=== PATIENT | male | born 1935 | race Caucasian/White ===

== ENCOUNTER → 2020-07-12 | Outpatient (CLI) | payer MEDICARE, BC ==
--- NOTE | 2020-07-12 09:10 | US ---
EXAMINATION TYPE: US kidneys/renal and bladder/ aorta DATE OF EXAM: 07/12/2020 COMPARISON: NONE CLINICAL HISTORY: N18.3 Chronic kidney disease stage 3. EXAM MEASUREMENTS: Right Kidney: 9.4 x 4.8 x 4.7 cm Left Kidney: 9.9 x 5.7 x 5.2 cm Post Void Residual Volume: 19.3 mL US Aorta (as indicated by Procedure Code from ordering physician): Mild ectasia is noted throughout a bdominal aorta, however, size is wnl. Irregular intimal wall thickening is noted throughout aorta. Right Kidney: No hydronephrosis or masses seen Left Kidney: No hydronephrosis or masses seen Bladder: not prepped; partially distended Bilateral Jets seen: yes Normal Post Void Residual: yes, as volume is less than 50.0ml. There is no evidence for hydronephrosis at this point in time. No nephrolithiasis is seen. No corie s are identified. The urinary bladder is anechoic. Bilateral ureteral jets are seen. IMPRESSION: No distinct abnormality seen. Plaque abdominal aorta.
== END | disposition home or self-care (01) ==
LOC: RADUSWWP 08:04
PROVIDERS: ATTEND Physician Assistant Medical
DX: I70.0 Atherosclerosis of aorta (principal); N18.3 Chronic kidney disease, stage 3 (moderate)
CPT/HCPCS: 76770

== ENCOUNTER → 2021-02-05 | Outpatient (CLI) | payer MEDICARE, OTHER | END | disposition home or self-care (01) | LOC: LABPAT 13:09 | PROVIDERS: ATTEND Orthopaedic Surgery | DX: Z01.812 Encounter for preprocedural laboratory examination (principal); M16.11 Unilateral primary osteoarthritis, right hip | CPT/HCPCS: 86850; 86900; 86901; 87070 ==

== ENCOUNTER → 2021-02-05 | Outpatient (CLI) | payer MEDICARE, OTHER | END | disposition home or self-care (01) | LOC: LABWHC1 13:50 | PROVIDERS: ATTEND Family Medicine | DX: E87.5 Hyperkalemia (principal) | CPT/HCPCS: 36415; 84132 ==

== ENCOUNTER 2021-02-12 08:40 | Day surgery (SDC) | payer BC, MEDICARE, OTHER ==
[2021-02-05 15:42] VITALS: BMI 26.6
--- NOTE | 2021-02-11 09:55 | HP ---
HISTORY AND PHYSICAL CHIEF COMPLAINT: Right hip pain. HISTORY OF PRESENT ILLNESS: The patient is an 85-year-old retired gentleman who presents with progressive right hip pain for the past 2 years. It has progressed recently. He notes anterior groin and thigh pain, worse with weightbearing activities. He has tried therapy in addition injection and medications with only partial temporary relief. He notes the pain severely limits his function and activities. PAST MEDICAL HISTORY: Significant for hypertension and arthritis. PAST SURGICAL HISTORY: Negative. CURRENT MEDICATIONS: Current medications include losartan. ALLERGIES: He denies drug allergies. FAMILY HISTORY: Negative. SOCIAL HISTORY: Significant for previous tobacco use. REVIEW OF SYSTEMS: Sixteen-point review of systems otherwise reviewed and is noncontributory. PHYSICAL EXAMINATION: On examination, the patient is approximately 5 feet 10 inches, 177 pounds of mesomorphic habitus. HEENT exam is nonfocal. Neck is supple. On examination of the right hip, he is tender about the anterior aspect. Passive range of motion flexion 85 degrees, external rotation with the hip flexed 60 degrees, internal rotation -10 degrees with pain. He does have approximately 1 cm shortening of the right lower extremity compared to the left. His distal neurovascular exam appears intact in the right lower extremity. Previous x-rays of the right hip obtained in the office to include AP and lateral views show severe osteoarthrosis with [id number] changes. IMPRESSION: Right hip severe osteoarthrosis-symptomatic. RECOMMENDATIONS: I talked to the patient at length regarding his condition and treatment options. At this point, he is quite symptomatic and limited because of pain despite previous conservative measures. After thorough discussion, he opts to proceed with surgery. We will plan to proceed with right total hip arthroplasty utilizing an anterior approach. Risks and benefits were discussed at length in layman's terms. We will institute DVT prophylaxis postoperatively. MMODL / IJN: [id number] /
[~2021-02-12 08:40] MED LIST: ACETAMINOPHEN TAB 500 MG TAB PO PRN; HYDROmorphone 0.5 MG/0.5 ML SYRINGE IVP PRN; LIDOCAINE 1% (10MG/ML) FOR IV START INTRADERMA PRN; MELOXICAM 7.5 MG TAB PO PRN; MIDAZOLAM 2 MG/2 ML VIAL IV PRN; TRANEXAMIC ACID 1,000 MG in SODIUM CHLORIDE 0.9% 100 ML IVPB PRN
[2021-02-12] MEDS ORDERED: ONDANSETRON 4 MG/2 ML VIAL ONE (09:17)
[2021-02-12] MEDS: LACTATED RINGERS 1,000 ML IV SCH ×2 (09:19→21:01)
[2021-02-12] MEDS ORDERED: DEXAMETHASONE SOD PHOSPHATE 4 MG/ML 1 ML VIAL IVP ONE (09:27)
[2021-02-12] MEDS ORDERED: ONDANSETRON 4 MG/2 ML VIAL IVP ONE (09:27)
[2021-02-12] MEDS ORDERED: MIDAZOLAM 2 MG/2 ML VIAL ONE (10:17)
[2021-02-12] MEDS ORDERED: fentaNYL (PF) 50 MCG/ML 2 ML AMP ONE (10:17)
[2021-02-12] MEDS ORDERED: TRANEXAMIC ACID 1,000 MG/10 ML VIAL ONE (10:17)
[2021-02-12] MEDS ORDERED: SODIUM CHLORIDE 0.9% 100 ML BAG ONE (10:17)
[2021-02-12] MEDS ORDERED: PROPOFOL 10 MG/ML 20 ML VIAL IV ONE (10:17)
[2021-02-12] MEDS ORDERED: ceFAZolin 3,000 MG in SODIUM CHLORIDE 0.9% IRRIGATIO 3,000 ML IRRIGATION ONE (10:58)
[2021-02-12] MEDS ORDERED: LACTATED RINGERS 1,000 ML IV ONE ×2 (12:05→14:45)
[2021-02-12] MEDS ORDERED: NALOXONE 0.4 MG/ML 1 ML VIAL IV PRN (12:30)
[2021-02-12] MEDS ORDERED: HYDROcodone/APAP 5-325MG 1 EACH TAB PO PRN (12:30)
--- NOTE | 2021-02-12 12:32 | P.OP ---
Date of Procedure: 02/12/21 Preoperative Diagnosis: Right hip severe osteoarthrosis Postoperative Diagnosis: Same Procedure(s) Performed: Right total hip arthroplastypress-fitanterior approach Implants: Depuy Corail size 11 collared press-fit femoral stem with 125 neck, 36+1.5 cobalt chrome femoral head, 52 mm [place] acetabular shell with neutral polyethylene liner. Anesthesia: spinal Surgeon: Darrian Rose Co Founder And Ceo #1: Natan Glass Estimated Blood Loss (ml): 75 Pathology: other (Femoral head) Condition: stable Disposition: PACU Indications for Procedure: The patient's an 85-year-old male presents with progressive right hip pain secondary osteoarthrosis despite conservative treatment. After thorough discussion the risks and benefits of operative intervention versus continued conservative measures he opted to proceed with surgery. Informed consent was obtained. Specific risks of surgery to include infection, neurovascular injury, development of blood clots, possible component loosening, possible leg length discrepancy, possible instability and need for subsequent procedures was discussed. Informed consent was obtained. Operative Findings: As below Description of Procedure: The patient was brought to the operating room, and after induction of spinal anesthesia was placed supine on the S[place] table. Positioning was checked with fluoroscopy. The right hip was then prepped and draped in a normal fashion. A 12 cm incision was then made starting 2 fingerbreadths distal and 3 finger breaths posterior to the ASIS in line with the proximal femur. The skin was incised sharply. Subcutaneous tissues were divided sharply. Electrocautery was used for hemostasis. The fascia was split in line with skin incision. The interval between the sartorius and tensor fascia michelle was then bluntly developed. The posterior fascia was opened with electrocautery. The lateral circumflex vessels were identified and cauterized prior to sectioning. A retractor was placed along the superior femoral neck as well as the anterior acetabular rim. A wide capsulotomy was performed. The neck cut was then made at a 45 angle to the shaft approximately 1 1/2 cm above the level of the lesser trochanter. The head was extracted. Attention was then paid towards preparing the acetabular. Anterior and posterior retractors were placed. The remaining capsular labral tissue sharply debrided clearly defining the acetabular margins. I began reaming with a 47 mm reamer taking care to initially medialize then reaming at 45 of abduction and 20 of anteversion. Sequential reaming is performed up to 51 mm. A trial 52 mm acetabular shell was inserted in the same orientation and was fully seated. There was good rim fit and stability. Positioning was checked with fluoroscopy. The final 52 mm acetabular shell was inserted again at 45 of abduction and 20 of anteversion. This was fully seated. There was good rim fit and stability. Again fluoroscopy was used to check the adequacy of placement. A neutral polyethylene liner was gently impacted. Care was taken to avoid any soft tissue interposition. Pulsatile lavage was utilized. Attention was then paid towards preparing the proximal femur. The central region was cleared of soft tissue. A canal finder was used to find the femoral canal. Sequential broaching was performed up to size 11 taking care to lateralize proximally. A calcar mill was used to fashion the medial calcar. There was good rotational stability. A 125 neck along with a 36+1.5 mm head was placed. The hip was gently reduced. Fluoroscopy was used to check the adequacy of positioning along with leg lengths. I felt both were good. The hip was gently dislocated. The trial components were removed. The final size 11 collared 125 press-fit femoral stem was inserted parallel to the posterior cortex. This was fully seated and there was good rotational stability. A 36 mm +1.5 head was placed. This was gently impacted. The hip was then gently reduced. Final fluoroscopic view showed adequate placement implant along with taoism of leg length. Stability was checked with 80 of external rotation and 60 of extension of the right hip. The wound was irrigated with sterile lavage. The fascia was closed with running 0 Vicryl suture. There was minimal drainage therefore a deep drain was not placed. The second dose of IV TXA was given. The subcutaneous tissues were reapproximated interrupted 2-0 Vicryl sutures. The skin was reapproximated with 3-0 subcuticular strata fix suture. Skin tape and adhesive was applied. A sterile dressing was applied. The patient was then awoken from sedation and transferred to recovery room in good condition. Blood loss was estimated at 75 mL. No complications were incurred. Sponge and needle counts were correct at the end of the case. Natan PARRA assisted during the major components is case to include exposure, bone resection, implantation, and closure.
--- NOTE | 2021-02-12 12:34 | FL ---
EXAMINATION TYPE: FL guidance operating room DATE OF EXAM: 02/12/2021 HISTORY: Fluoroscopy time 49 seconds of fluoroscopy provided. IMPRESSION: 1. Fluoroscopy time.
--- NOTE | 2021-02-12 13:14 | XR ---
EXAMINATION TYPE: XR Hip Limited RT DATE OF EXAM: 02/12/2021 COMPARISON: NONE HISTORY: Postop TECHNIQUE: One view submitted. FINDINGS: There is postsurgical change in near anatomic alignment. There is soft tissue edema and emphysema. IMPRESSION: 1. Postoperative change. Appears in near-anatomic alignment.
[2021-02-12] MEDS ORDERED: FAMOTIDINE 20 MG/2 ML VIAL IV SCH (14:00)
[2021-02-12] MEDS ORDERED: HYDROmorphone 0.5 MG/0.5 ML SYRINGE IVP PRN (14:52)
[2021-02-12] MEDS ORDERED: SENNOSIDES-DOCUSATE SODIUM 1 EACH TAB PO SCH (21:00)
[2021-02-13 04:55] VITALS: BP 130/76; PULSE 81; RESP 16; TEMP 97.9
[2021-02-13 07:12] LABS: Basophils % (A) 0 %; Eosinophils % (A) 0 %; HCT 32.6 % (39.0-53.0); HGB 11.2 gm/dL (13.0-17.5); Lymphocytes # (A) 1.9 k/uL (1.0-4.8); Lymphocytes % (A) 17 %; MCH 29.5 pg (25.0-35.0); MCHC 34.4 g/dL (31.0-37.0); MCV 85.8 fL (80.0-100.0); Mean Platelet Volume 6.6; Monocytes # (A) 0.8 k/uL (0-1.0); Monocytes % (A) 7 %; Neutrophils # (A) 8.4 k/uL (1.3-7.7); Neutrophils % (A) 74 %; Platelet Count 181 k/uL (150-450); RDW 12.8 % (11.5-15.5); WBC 11.3 k/uL (3.8-10.6)
[2021-02-13] MEDS ORDERED: ACETAMINOPHEN TAB 325 MG TAB PO STA (08:21)
--- NOTE | 2021-02-13 08:48 | P.PN ---
Subjective Progress Note Date: 02/13/21 Principal diagnosis: s/p direct anterior total hip arthroplasty Patient evaluated at bedside today, he is resting comfortably. He's done very well with physical therapy ambulating with stairs. He's tolerating regular diet. He is urinating with no difficulty. He denies any headaches, lightheadedness, chest pain or shortness of breath. Objective - Vital Signs Vital signs: Vital Signs Temp 97.9 F 02/13/21 04:53 Pulse 81 02/13/21 04:53 Resp 16 02/13/21 04:53 BP 130/76 02/13/21 04:53 Pulse Ox 92 L 02/13/21 04:53 Intake & Output 02/12/21 02/13/21 02/13/21 18:59 06:59 18:59 Intake Total 1851 200 Output Total 75 Balance 1776 200 Weight 76.6 kg Intake: IV 1751 Intake, IV Titration 100 200 Amount Lactated Ringers 1,000 ml 100 @ 0 mls/hr IV .[facility] Rx#:[id number] Lactated Ringers 1,000 ml 200 @ 20 mls/hr IV .Q24H [facility] Rx#:[id number] Output: Estimated Blood Loss 75 Other: Voiding Method Toilet # Voids 1 - Exam Right lower extremity: Incision is clean, dry, and intact. The exofin fusion tape is in good condition. There is minimal soft tissue swelling and ecchymosis surrounding the medial and lateral aspects of the incision. Calf is soft, no tenderness with palpation. Plantar flexion, dorsiflexion, EHL, FHL are intact. Sensory exam to light touch throughout the extremity is intact, dorsal pedis pulses 2+. - Labs CBC & Chem 7: 02/13/21 06:27 02/12/21 09:15 Labs: Abnormal Lab Results - Last 24 Hours (Table) 02/13/21 Range/Units 06:27 WBC 11.3 H (3.8-10.6) k/uL RBC 3.80 L (4.30-5.90) m/uL Hgb 11.2 L (13.0-17.5) gm/dL Hct 32.6 L (39.0-53.0) % Neutrophils # 8.4 H (1.3-7.7) k/uL Assessment and Plan Assessment: Status post direct anterior right total hip arthroplasty Plan: Pain control, for discharge home on oral medication DVT prophylaxis, aspirin 81 mg twice a day Wound care instructions discussed Home physical therapy and nursing after discharge Medical recommendations Discharge planning: Patient will be discharged home today Time with Patient: Less than 30
--- NOTE | 2021-02-13 08:54 | P.DS ---
Providers Date of admission: 02/12/2021 Expected date of discharge: 02/13/21 Attending physician: Darrian Rose Consults: 02/12/21 15:07 Consult Physician Routine Consulting Provider: Matt Hough Consult Reason/Comments: Medical Management Do you want consulting provider notified?: Yes [facility] Course: Date of admission: 02/12/2021 Date of discharge: 02/13/2021 Admission diagnosis: Status post direct anterior right total hip arthroplasty Discharge diagnosis: Same Attending physician: Dr. Rose Surgical procedures: Direct anterior right total hip arthroplasty Brief history: Patient is a a 85-year-old male with a history of progressive primary right hip osteoarthritis. At this point patient has failed conservative treatment measures and has opted to proceed with a elective direct anterior right total hip arthroplasty Hospital course: Details of patient's surgery can be found in operative report. Patient tolerated the procedure well and was subsequently transported to orthopedic floor. Patient's orthopeidc and medical care was provided daily. Patient had daily laboratory tests performed for evaluation of overall blood counts. Patient had daily physical therapy to include strengthening range of motion as well as education with walker ambulation. Patient was treated with Xarelto for their postoperative DVT prophylaxis during their inpatient stay. Patient was noted to have a relatively uneventful postoperative course. Patient reported satisfactory pain control with oral pain medications by postoperative day 0. Patient showed satisfactory progress with physical therapy. Patient moved steadily through the program and had no difficulty meeting the goals by postoperative day 1. Given patient's otherwise satisfactory course and having met physical therapy goals, plan is to discharge patient home on postoperative day 1. Discharge condition/disposition: Patient will be discharged home in stable condition. Discharge medications: Instructions are given on resumption of patient's normal daily medications per primary care recommendation, in addition patient will be prescribed Appling 5 mg/325 mg, Colace 100 mg, aspirin 81 mg. Discharge instructions: 1. Wound care and infection precautions, keep incision dry and covered while showering, no lotions, creams, moisturizers. No soaking, tubs, pools, hottubs. Do not scrub over the incision. 2. Weight-bear as tolerated with walker / cane until follow-up. 3. Ice and elevate when necessary. Do not exceed 20 minutes per hour with ice pack. 4. Utilize compression sleeve until seen at first follow up appointment. 5. Visiting nursing care. 6. Home physical therapy 7. Pain meds and anticoagulants per prescription. 8. Pain medication has potential to cause constipation. Increase oral fluid and fiber intake. Contact primary care provider if you have not had a bowel movement within 48 hours after discharge 9. No anti-inflammatory medication until discussed at first post operative visit, this including Motrin, Aleve, Mobic, Diclofenac 10. Follow up in office at 2 weeks postop with Saul Carranza PA-C/Natan Xavier 11. Follow up with your primary care doctor 7-10 days after discharge. 12. Contact [facility] with any questions, . Procedures: Direct anterior right total hip arthroplasty Patient Condition at Discharge: Good Plan - Discharge Summary Discharge Rx Participant: No New Discharge Prescriptions: New Docusate [Colace] 100 mg PO DAILY #30 capsule Aspirin [Adult Low Dose Aspirin EC] 81 mg PO BID #60 tablet. HYDROcodone/APAP 5-325MG [Appling 5-325] 1 tab PO Q6HR PRN #21 tab PRN Reason: Pain No Action Losartan [Cozaar] 25 mg PO QAM Esomeprazole Magnesium [NexIUM] 40 mg PO QAM Atorvastatin [Lipitor] 20 mg PO DAILY Discharge Medication List Atorvastatin [Lipitor] 20 mg PO DAILY 02/06/21 [History] Esomeprazole Magnesium [NexIUM] 40 mg PO QAM 02/06/21 [History] Losartan [Cozaar] 25 mg PO QAM 02/06/21 [History] Aspirin [Adult Low Dose Aspirin EC] 81 mg PO BID #60 tablet. 02/13/21 [Rx] Docusate [Colace] 100 mg PO DAILY #30 capsule 02/13/21 [Rx] HYDROcodone/APAP 5-325MG [Appling 5-325] 1 tab PO Q6HR PRN #21 tab 02/13/21 [Rx] Follow up Appointment(s)/Referral(s): Todd Carranza PAC [PHYSICIAN [employer] [facility]] - 2 Weeks Activity/Diet/Wound Care/Special Instructions: Orthopedic Discharge Instructions: 1. Wound care and infection precautions, keep incision dry and covered while showering, no lotions, creams, moisturizers. No soaking, pools, hot tubs. Do not scrub over incision. 2. Weight-bear as tolerated with walker / cane until follow-up. 3. Ice and elevate when necessary. Do not exceed 20 minutes per hour with ice pack. 4. Utilize compression sleeve until seen at first follow up appointment. 5. Pain meds and anticoagulants per prescription. 6. Pain medication has potential to cause constipation. Increase oral fluid and fiber intake. Contact primary care provider if you have not had a bowel movement within 48 hours after discharge. 7. No anti-inflammatory medication until discussed at first post operative visit, this including Motrin, Aleve, Mobic, Diclofenac. 8. Follow up in office at 2 weeks postop with Saul Carranza PA-C/Natan Glass PA-C 9. Follow up with your primary care doctor 7-10 days after discharge. 10. Contact [facility] with any questions, . Discharge Disposition: HOME WITH HOME HEALTH SERVICES
[2021-02-13] MEDS ORDERED: RIVAROXABAN 10 MG TAB PO SCH (09:00)
[2021-02-13] MEDS ORDERED: PANTOPRAZOLE 40 MG TABLET PO SCH (10:15)
[2021-02-13] MEDS ORDERED: LOSARTAN 25 MG TAB PO SCH (10:15)
[2021-02-13] MEDS ORDERED: ATORVASTATIN 20 MG TAB PO SCH (10:15)
== END 2021-02-13 12:45 | disposition home health service (06) ==
LOC: OR 08:40 → 5NMEDONC 12:57 → OR 02-13 12:45
PROVIDERS: ATTEND Orthopaedic Surgery
DX: M16.11 Unilateral primary osteoarthritis, right hip (principal); Z79.899 Other long term (current) drug therapy; I10 Essential (primary) hypertension; Z87.891 Personal history of nicotine dependence; K21.9 Gastro-esophageal reflux disease without esophagitis; Z97.2 Presence of dental prosthetic device (complete) (partial)
CPT/HCPCS: 97161; 97535; 97165; 84132; 85025; 88300; 87635; 73501; 27130; C1776; J1100; J0690 ×3; J2405; J1170; 86850; 86900; 86901

== ENCOUNTER → 2022-10-22 | Outpatient (CLI) | payer MEDICARE ==
--- NOTE | 2022-10-22 14:45 | XR ---
EXAMINATION TYPE: XR chest 2V DATE OF EXAM: 10/22/2022 COMPARISON: NONE TECHNIQUE: PA and lateral views submitted. HISTORY: Pain FINDINGS: The lungs are clear and there is no pneumothorax, pleural effusion, or focal pneumonia. There is sc lerotic change of aorta. No overt failure. AC joint arthropathy bilaterally. Mild hyperinflation. IMPRESSION: 1. No acute process.
--- NOTE | 2022-10-22 14:47 | XR ---
EXAMINATION TYPE: XR Hip Complete LT DATE OF EXAM: 10/22/2022 COMPARISON: NONE HISTORY: Pain TECHNIQUE: 2 views submitted FINDINGS: There is no evidence of erosive change or acute fracture. Postsurgical changes of right hip are incid entally noted. There is mild concentric narrowing of the hip joint with hypertrophic changes in the a cetabulum. Vascular calcifications seen. IMPRESSION: 1. Mild left hip arthropathy concentric narrowing of the joint space. Hypertrophic change of the acet abulum can be associated with femoral acetabular impingement..
--- NOTE | 2022-10-22 14:48 | XR ---
EXAM TYPE: LUMBAR SPINE X RAY SERIES COMPARISON: NONE HISTORY: Pain TECHNIQUE: 4 views are submitted. FINDINGS: Alignment is anatomic. The pedicles are intact. The transverse processes are intact. There is vacu um disc and severe degenerative disc disease at levels L2-S1 with hypertrophic spurring and facet art hropathy. Vascular calcifications are noted. Diffuse osteopenia. Curvature of the spine. IMPRESSION: 1. Multilevel severe degenerative disc disease and facet arthropathy. Comment follow-up MRI.
== END | disposition home or self-care (01) ==
LOC: RADXRYALE 14:14
PROVIDERS: ATTEND Physician Assistant
DX: M16.12 Unilateral primary osteoarthritis, left hip (principal); R53.82 Chronic fatigue, unspecified; R06.02 Shortness of breath; M47.816 Spondylosis without myelopathy or radiculopathy, lumbar region; M51.36 Other intervertebral disc degeneration, lumbar region
CPT/HCPCS: 71046; 72110; 73502

== ENCOUNTER → 2023-02-16 | Outpatient (CLI) | payer MEDICARE ==
[2023-02-16 13:14] VITALS: BP 166/85; PULSE 73; RESP 18; TEMP 97.8
--- NOTE | 2023-02-16 14:35 | P.PAINPG ---
PQRS Measure Charge Sheet Comment: HISTORY OF PRESENT ILLNESS: 87 yr old male w daughter at side as a referral from [facility] presents today w severe and chronic LBP secondary to DDD, spondylosis and facet arthropathy without myelopathy for evaluation. Pt states pain level is provoked at 9/10 in intensity, constant, localized in the R lower lumbar spine, burning in character w shooting pain towards the RLE. Pain is provoked by walking. Pain is alleviated by PT semi weekly x 4 wks in Dec 2022 which provoked pain, massage therapy semi weekly since Dec 2022, heat, meds, THC topicals, repositioning and rest. PMH: HTN, OA, CRF PSH: R Hip Arthroplasty (2020), BL Cataract Resection, R eye surgery SH: Former tobacco user (quit 40 yrs ago), No ETOH abuse, No illicit drug use FH: Mo- No Reported History All: NKDA Meds: See list REVIEW OF ORGAN SYSTEMS: CONSTITUTIONAL: No fevers or chills. No recent weight lo ss. NEUROLOGICAL: + numbness and tingling along the distal extremities. No seizure disorders or headaches. MUSCULOSKELETAL: + pain PSYCHIATRIC: Denies current depression or suicidal thoughts. Physical Examinations : Constitutional : Cooperative , not in acute distress . Neurologic : Cranial nerve II to XII intact. No focal neurological deficits. Psychiatric : alert & oriented x 3. Matching mood & appropriate affect. Judgment & insight intact. Musculoskeletal : Cervical Spine Motor strength in the deltoid and biceps: Normal right side. Normal Left side Motor strength biceps and the wrist e xtensors: Normal right side . Normal left side Motor strength in the triceps muscle: Normal right side. Normal left side Deep tendon reflexes: Normal at the biceps. Normal at Brachioradialis. Normal at triceps Vertebral body tenderness to deep palpation over Cervical facet loading test: positive bilaterally Spurling test: positive bilaterally Neck distraction test: positive bilaterally Naz sign: positive bilaterally Lumbar spine Motor strength lower extremities ,thigh and legs 5/5 Right side , 5/5 Left side Deep tendon reflexes : Normal Knee Jerk. Normal Ankle Jerk Vertebral body tenderness over R L3, L4, L5 Lumbar facet Loading Test: positive Right / positive Left Range of motion of the lumbar spine Flexion 30 degrees, extension 10 degrees Straight Leg Raise test: Left/ Right positive at degree Rossi test: positive right / positive left. Severe tenderness over the Sacroiliac joint on the Right / Left sides Katharine test: positive bilaterally Seated flexion test: positive bilaterally. Sacral spine : Severe tenderness over the Sacroiliac joint: right side / left side Range of motion: Flexion of the lumbar spine <60 degrees Range of motion: Extension of the lumbar spine <20 degrees Gaenslen's Test positive Kaz's Test positive Rossi test: positive right side / left side Thigh Thrust Test Sacral Thrust Test Imaging: Lumbar x ray 10/21/22 reviewed Assessment/ Plan : Lumbar DDD Recommendation of MRI of the lumbar spine re: M51.36. May follow up within 2-4 wks All questions answered. I have spent greater than 30 minutes on patient care today. Dr Mckeon was available by phone for the evaluation of this patient. The time was used to review the medical records including relevant urine studies and Prescription history (MAPs), review of the available imaging, evaluation and examination of the patient, coordination of care with the medical staff and if applicable referring physicians, as well as creation of the medical record Home Medications: Ambulatory Orders Atorvastatin [Lipitor] 20 mg PO DAILY 02/06/21 Esomeprazole Magnesium [NexIUM] 40 mg PO QAM 02/06/21 Losartan [Cozaar] 25 mg PO QAM 02/06/21 Aspirin [Adult Low Dose Aspirin EC] 81 mg PO BID #60 tablet. 02/13/21 Docusate [Colace] 100 mg PO DAILY #30 capsule 02/13/21 Baclofen 10 mg PO 02/16/23 Controlled Substance Measures - Controlled Substance Measures Is patient prescribed a controlled substance at discharge?: No
== END ==
LOC: PNWHC3 12:17
PROVIDERS: ATTEND Specialist
DX: M47.26 Other spondylosis with radiculopathy, lumbar region (principal); I10 Essential (primary) hypertension; Z79.82 Long term (current) use of aspirin; M19.90 Unspecified osteoarthritis, unspecified site; Z87.891 Personal history of nicotine dependence; N18.9 Chronic kidney disease, unspecified; M48.062 Spinal stenosis, lumbar region with neurogenic claudication; M51.16 Intervertebral disc disorders with radiculopathy, lumbar region; M41.06 Infantile idiopathic scoliosis, lumbar region
CPT/HCPCS: 99211

== ENCOUNTER → 2023-03-13 | Outpatient (CLI) | payer MEDICARE ==
--- NOTE | 2023-03-16 16:52 | MR ---
EXAMINATION TYPE: MR lumbar spine wo con DATE OF EXAM: 03/13/2023 COMPARISON: Outside lumbar spine x-ray November 10, 2022. HISTORY: Low back pain that radiates down right leg. Intervertebral disc degeneration per order. TECHNIQUE: Multiplanar, multisequence imaging of the lumbar spine is performed without IV contrast. FINDINGS: There is dextroconvex scoliosis centered at the lumbosacral junction. Slight grade 1 retrol isthesis L3 on L4 and L4 on L5. Sagittal images of the lumbar spine show vertebral body heights to ap pear satisfactory. There is multilevel disc desiccation along with mild to moderate multilevel disc s pace narrowing with relative sparing of L1-L2 level and multilevel vacuum disc phenomenon. The conus medullaris is normal in position and signal ending superior L1 level. The bone marrow signal intensi ty is within normal limits. Mild/moderate multilevel anterior spurring is redemonstrated. Axial images show T12-L1 and L1-L2 levels to appear within normal limits. Axial images at L2-L3 level show mild to moderate broad-based disc bulging and jzmt-ge-[id number] facet arthropathy with mild effacement of the anterior thecal sac and mild left-sided anterior inferior ne ural foraminal narrowing due to left foraminal disc protrusion component. Axial images at L3-L4 level show moderate broad disc bulge mildly effacing anterior thecal sac along with mild facet arthropathy mildly effacing the anterior thecal sac. There is mild to moderate bilate ral neural foraminal narrowing. Axial images at L4-L5 level show moderate broad disc bulge with right lateral disc protrusion compone nt along with mild/moderate facet arthropathy. There is moderate left along with severe right-sided n eural foraminal narrowing. Encroachment on right L4 nerve is present. Axial images at L5-S1 level show mild broad disc bulge and mild facet arthropathy. There is severe le ft-sided neural foraminal narrowing encroaching on the exiting left L5 nerve and mild right-sided joshua ral foraminal narrowing. Paraspinal muscle bulk is maintained. IMPRESSION: Scoliosis with multilevel spondylolisthesis and degenerative change in the lower lumbar s pine as detailed above. Attention to L4-L5 level where eccentric disc herniation encroaches on the ri ght L4 nerve likely accounting for patient's radiculopathy type symptoms.
== END | disposition home or self-care (01) ==
LOC: RADMRIMAIN 14:58
PROVIDERS: ATTEND Physician Assistant Medical
DX: M51.36 Other intervertebral disc degeneration, lumbar region (principal); M43.16 Spondylolisthesis, lumbar region; M41.86 Other forms of scoliosis, lumbar region; M51.26 Other intervertebral disc displacement, lumbar region; M47.817 Spondylosis without myelopathy or radiculopathy, lumbosacral region
CPT/HCPCS: 72148

== ENCOUNTER → 2023-03-19 | Outpatient (CLI) | payer MEDICARE ==
[2023-03-19 15:25] VITALS: BP 156/83; PULSE 82; RESP 18; TEMP 98.1
--- NOTE | 2023-03-23 07:40 | P.PAINPG ---
PQRS Measure Charge Sheet Comment: 87 yr old male w daughter at side presents today w severe and chronic LBP x 1 yr secondary to DDD, spondylosis and facet arthropathy without myelopathy for MRI lumbar spine results. Pt states pain level is provoked at 8/10 in intensity, constant, localized in the R lower lumbar spine, burning in character w shooting pain towards the RLE. Pain is provoked by walking. Pain is alleviated by PT semi weekly x 6 wks in Jan 2023 which provoked pain, massage therapy semi weekly x 3 wks until Dec 2022 which stopped due to out of pocket costs, heat, meds (Zanaflex, ASA), THC topicals, repositioning, sitting and rest. REVIEW OF ORGAN SYSTEMS: CONSTITUTIONAL: No fevers or chills. No recent weight loss. NEUROLOGICAL: + numbness and tingling along the distal extremities. No seizure disorders or headaches. MUSCULOSKELETAL: + pain PSYCHIATRIC: Denies current depression or suicidal thoughts. Physical Examinations : Constitutional : Cooperative , not in acute distress . Neurologic : Cranial nerve II to XII intact. No focal neurological deficits. Psychiatric : alert & oriented x 3. Matching mood & appropriate affect. Judgment & insight intact. Musculoskeletal : Cervical Spine Motor strength in the deltoid and biceps: Normal right side. Normal Left side Motor strength biceps and the wrist extensors: Normal right side . Normal left side Motor strength in the triceps muscle: Normal right side. Normal left side Deep tendon reflexes: Normal at the biceps. Normal at Brachioradialis. Normal at triceps Vertebral body tenderness to deep palpation over Cervical facet loading test: positive bilaterally Spurling test: positive bilaterally Neck distraction test: positive bilaterally Naz sign: positive bilaterally Lumbar spine Motor strength lower extremities ,thigh and legs 5/5 Right side , 5/5 Left side Deep tendon reflexes : Normal Knee Jerk. Normal Ankle Jerk Vertebral body tenderness over L4 Lumbar facet Loading Test: positive Right / positive Left Range of motion of the lumbar spine Flexion 30 degrees, extension 10 degrees Straight Leg Raise test: Left/ Right positive at <45 degrees Rossi test: positive right / positive left. Severe tenderness over the Sacroiliac joint on the Right / Left sides Gaenslen test: positive bilaterally Seated flexion test: positive bilaterally. Sacral spine : Severe tenderness over the Sacroiliac joint: right side / left side Range of motion: Flexion of the lumbar spine <60 degrees Range of motion: Extension of the lumbar spine <20 degrees Gaenslen's Test positive Kaz's Test positive Rossi test: positive right side / left side Thigh Thrust Test Sacral Thrust Test Imaging: Lumbar MRI non contrast from 03/13/23 reviewed Assessment/ Plan : Lumbar DDD Recommendation of NEELAM R paramedian L4-L5. May need a series of injections for optimal pain releif. Risks, benefits of procedure discussed and pt verbalized un derstanding. Protocol for discontinuation/ continuation of medications tiki procedure discussed. All questions answered. I have spent greater than 30 minutes on patient care today. Dr Mckeon was soha ilable by phone for the evaluation of this patient. The time was used to review the medical records including relevant urine studies and Prescription history (MAPs), review of the available imaging, evaluation and examination of the patient, coordination of care with the medical staff and if applicable referring physicians, as well as creation of the medical record PQRS Narrative: Hx Alcohol Use (MH) No Home Medications: Ambulatory Orders Atorvastatin [Lipitor] 20 mg PO DAILY 02/06/21 Esomeprazole Magnesium [NexIUM] 40 mg PO QAM 02/06/21 Losartan [Cozaar] 25 mg PO QAM 02/06/21 Aspirin [Adult Low Dose Aspirin EC] 81 mg PO BID #60 tablet. 02/13/21 Docusate [Colace] 100 mg PO DAILY #30 capsule 02/13/21 tiZANidine HCL [Zanaflex] 2 mg PO TID PRN 30 Days #90 cap 02/16/23 tiZANidine HCL [Zanaflex] 2 mg PO TID PRN 30 Days #90 cap 02/18/23 Controlled Substance Measures - Controlled Substance Measures Is patient prescribed a controlled substance at discharge?: No
== END ==
LOC: PNWHC3 14:24
PROVIDERS: ATTEND Specialist
DX: M51.36 Other intervertebral disc degeneration, lumbar region (principal); Z79.82 Long term (current) use of aspirin
CPT/HCPCS: 99211

== ENCOUNTER 2023-04-16 09:43 | Day surgery (SDC) | payer MEDICARE ==
[2023-04-15 11:17] VITALS: BMI 27.3
[~2023-04-16 09:43] MED LIST changes: -ACETAMINOPHEN TAB 500 MG TAB PO PRN; -HYDROmorphone 0.5 MG/0.5 ML SYRINGE IVP PRN; +LACTATED RINGERS 1,000 ML IV SCH; -LIDOCAINE 1% (10MG/ML) FOR IV START INTRADERMA PRN; -MELOXICAM 7.5 MG TAB PO PRN; -MIDAZOLAM 2 MG/2 ML VIAL IV PRN; -TRANEXAMIC ACID 1,000 MG in SODIUM CHLORIDE 0.9% 100 ML IVPB PRN
[2023-04-16 10:08] VITALS: TEMP 97.3
[2023-04-16] MEDS ORDERED: methylPREDNISolone ACETATE 40 MG/ML 1 ML VIAL ONE (10:13)
[2023-04-16] MEDS ORDERED: IOPAMIDOL M200 10 ML VIAL ONE (10:13)
--- NOTE | 2023-04-16 10:21 | P.PCN ---
Date of Procedure: 04/16/23 Procedure(s) Performed: PREOPERATIVE DIAGNOSIS: 1- Lumbar Degenerative Disc Diseases 2-Lumbar spondylosis with Facet arthropathy without myelopathy. 3-lumbar radiculopathy POSTOPERATIVE DIAGNOSIS: 1-lumbar degenerative disc disease. 2-lumbar spondylosis with facet arthropathy without myelopathy. 3-lumbar radiculopathy PROCEDURE 1. Lumbar epidural steroid injection under fluoroscopic guidance at the L4-5 level ( right paramedial ). (Fluoroscopy imaging was available in radiology department) 2. Lumbar epidurogram. ANESTHESIA: moderate sedation with intravenous Versed 2 mg ,and fentanyle 100 Mcg Sedation start time : Sedation end time : EBL: Minimal PROCEDURE INDICATION: The patient with low back pain and radiculitis symptoms unresponsive to conservative treatment. Fluoroscopy was used to optimize v isualization of the needle placement and to maximize safety. PROCEDURE DESCRIPTION / TECHNIQUE: The patient was seen and identified in the preoperative area. Risks, benefits, complications including but not limited to infections ,bleeding ,allergic reaction to the medications ,nerve damage and not complete pain releife , and alternatives were discussed with the patient. The patient agreed to proceed with the procedure and signed the consent. IV was started, and vital signs were stable. Patient was taken to the OR and time out was completed. The patient was placed in the prone position on procedure table and a pillow was placed under the abdomen to reduce lumbar lordosis. The lumbosacral area was prepped and draped in the usual sterile fashion.ere closely monitored during the procedure. Vital signs was monitered during the entire procedure. Using anterior-posterior fluoroscopy, the L4-5 ( right paramedial ) interlaminar space was identified and the skin over this site was marked and then infiltrated with 1% lidocaine subcutaneously. Subsequently, a 20-gauge Tuohy epidural needle was inserted and advanced toward the epidural space using the ``Loss of resistance technique and guided by AP and lateral fluoroscopy. The correct needle position in the epidural space was verified with the injection of 2 mL of the water soluble contrast dye Isovue 200 contrast and observing an excellent epidurogram with the epidural spread of the dye, after negative aspiration for blood and CSF and in the absence of paresthesias. Again after negative aspiration, a 6 ml mixture containing 40 mg of Depo-medrol ( Preservetive Free ), and 2 ml of preservative free Normal Saline, and 2 ml of preservative free lidocaine 1% solution was injected and a washout of epidurogram was seen. Needle was withdrawn intact, skin was cleansed, and bandages were applied. COMPLICATIONS: None DISPOSITION / PLANS: The patient was placed in a supine position and transferred to the recovery area in a stable condition for observation. There was no evidence of lower extremity motor or sensory deficit after the procedure. Patient was discharged from the recovery room after meeting discharge criteria. Home discharge instructions were given to the patient by the staff. The patient was reexamined prior to discharge. The patient will schedule a follow up in the clinic in 2-4 weeks.
--- NOTE | 2023-04-16 10:33 | FL ---
Intraoperative/procedural fluoroscopic services were provided for lumbar epidural injection. Total fl uoroscopy time is 2.5 seconds with a total of 1 submitted image to PACS. Total DAP [id number] ease see the operative note for further details.
[2023-04-16 10:51] VITALS: BP 171/80; PULSE 71; RESP 15
== END 2023-04-16 11:00 | disposition home or self-care (01) ==
LOC: ORPAIN 09:43
PROVIDERS: ATTEND Specialist
DX: M51.16 Intervertebral disc disorders with radiculopathy, lumbar region (principal); M47.26 Other spondylosis with radiculopathy, lumbar region; Z88.8 Allergy status to other drugs, medicaments and biological substances
CPT/HCPCS: 62323; J1030; Q9966

== ENCOUNTER → 2023-05-27 | Outpatient (CLI) | payer MEDICARE ==
[2023-05-27 11:33] VITALS: BP 167/97; PULSE 68; RESP 15; TEMP 98.3
--- NOTE | 2023-05-27 13:55 | P.PAINPG ---
PQRS Measure Charge Sheet Comment: 87 yr old male w daughter at side presents today w severe and chronic LBP x 1 yr secondary to DDD, spondylosis and facet arthropathy without myelopathy for evaluation s/p R paramedian NEELAM L4-L5 #1. Pt states she experienced 40 % pain relief x 10 wks s/p procedure. Pt states pain level is provoked at 8.5/10 in intensity, constant, localized in the R lower lumbar spine, burning in character w shooting pain towards the R hip and knee. Pain is provoked by walking. Pain is alleviated by PT semi weekly x 6 wks in Jan 2023 which provoked pain, massage therapy semi weekly x 3 wks until Dec 2022 which stopped due to out of pocket costs, heat, meds (Zanaflex, ASA), THC topicals, repositioning, sitting and rest. Oswestry axial pain score of 21. Interventional procedures include NEELAM L4-L5 x1 Medications include Zanaflex, ASA, THC topical Physical Examinations : Constitutional : Cooperative , not in acute distress . Neurologic : Cranial nerve II to XII intact. No focal neurological deficits. Psychiatric : alert & oriented x 3. Matching mood & appropriate affect. Judgment & insight intact. Musculoskeletal : Cervical Spine Motor strength in the deltoid and biceps: Normal right side. Normal Left side Motor strength biceps and the wrist extensors: Normal right side . Normal left side Motor strength in the triceps muscle: Normal right side. Normal left side Deep tendon reflexes: Normal at the biceps. Normal at Brachioradialis. Normal at triceps Vertebral body tenderness to deep palpation over Cervical facet loading test: positive bilaterally Spurling test: positive bilaterally Neck distraction test: positive bilaterally Naz sign: positive bilaterally Lumbar spine Motor strength lower extremities ,thigh and legs 5/5 Right side , 5/5 Left side Deep tendon reflexes : Normal Knee Jerk. Normal Ankle Jerk Vertebral body tenderness Lumbar facet Loading Test: positive Right / positive Left over R L4-L5, L5-S1 Range of motion of the lumbar spine Flexion 30 degrees, extension 10 degrees Straight Leg Raise test: Left/ Right positive at degrees Rossi test: positive right / positive left. Severe tenderness over the Sacroiliac joint on the Right / Left sides Gaenslen test: positive bilaterally Seated flexion test: positive bilaterally. Sacral spine : Severe tenderness over the Sacroiliac joint: right side / left side Range of motion: Flexion of the lumbar spine <60 degrees Range of motion: Extension of the lumbar spine <20 degrees Gaenslen's Test positive Kaz's Test positive Rossi test: positive right side / left side Thigh Thrust Test Sacral Thrust Test Imaging: Lumbar MRI non contrast from 03/13/23 reviewed Assessment/ Plan : Lumbar DDD Recommendation of R MBB L4-L5, L5-S1. May need a series of injections for optimal pain releif. Risks, benefits of procedure discussed and pt verbalized understanding. Protocol for discontinuation/ continuation of medications tiki procedure discussed. Advised pt and daughter at side to go to their PCP for a BP evaluation. Dangers of elevated BP discussed and pt/ daughter at side acknowledged understanding. All questions answered. I have spent greater than 30 minutes on patient care today. Dr Mckeon was available by phone for the evaluation of this patient. The time was used to review the medical records including relevant urine studies and Prescription history (MAPs), review of the available imaging, evaluation and examination of the patient, coordination of care with the medical staff and if applicable referring physicians, as well as creation of the medical record PQRS Narrative: Hx Alcohol Use (MH) No Home Medications: Ambulatory Orders Atorvastatin [Lipitor] 20 mg PO DAILY 02/06/21 Esomeprazole Magnesium [NexIUM] 40 mg PO QAM 02/06/21 Losartan [Cozaar] 25 mg PO QAM 02/06/21 Aspirin [Adult Low Dose Aspirin EC] 81 mg PO BID #60 tablet. 02/13/21 Docusate [Colace] 100 mg PO DAILY #30 capsule 02/13/21 Controlled Substance Measures - Controlled Substance Measures Is patient prescribed a controlled substance at discharge?: No
== END ==
LOC: PNWHC3 10:53
PROVIDERS: ATTEND Specialist
DX: M51.37 Other intervertebral disc degeneration, lumbosacral region (principal); M47.817 Spondylosis without myelopathy or radiculopathy, lumbosacral region; G89.29 Other chronic pain; Z88.8 Allergy status to other drugs, medicaments and biological substances; Z79.82 Long term (current) use of aspirin
CPT/HCPCS: 99211

== ENCOUNTER 2023-06-19 08:22 | Day surgery (SDC) | payer MEDICARE ==
[2023-06-19] MEDS ORDERED: LACTATED RINGERS 1,000 ML IV SCH (08:34)
[2023-06-19 08:40] VITALS: TEMP 97.1
[2023-06-19] MEDS ORDERED: MIDAZOLAM 2 MG/2 ML VIAL ONE (09:02)
[2023-06-19] MEDS ORDERED: fentaNYL (PF) 50 MCG/ML 2 ML AMP ONE (09:02)
[2023-06-19] MEDS ORDERED: ROPIVACAINE 5 MG/ML 20 ML AMPULE ONE (09:06)
[2023-06-19] MEDS ORDERED: TRIAMCINOLONE ACETONIDE 40 MG/ML 1 ML VIAL ONE (09:06)
--- NOTE | 2023-06-19 09:15 | P.PCN ---
Date of Procedure: 06/19/23 Description of Procedure: Pre- and Post-operative Diagnosis: Lumbar facet arthropathy, and lumbar spondylosis without myelopathy. Procedure: #1 Diagnostic Medial Branch Block at bilateral Lumbar 4/5 and #1 diagnostic dorsal ramus block at Lumbar 5/ sacral ala levels (total 4 levels) Surgeon: Gianna Veras Anesthesia: Local: 1% Lidocaine, IV sedation : Versed 1 mg and fentanyl 50 g. Complications: None EBL: None Specimen removed: None Fluoroscopic image: Saved to patient electronic medical records. Indications for Procedure: The patient is well known to pain clinic for his chronic low back pain management. The lumbar facet loading test was positive with a clinical diagnosis of lumbar facet arthropathy. Failed with conservative therapy. Came here for interventional help for better pain relief. Procedure and Findings: The patient was seen and examined. The written informed consent was obtained after explaining the risks, benefits and alternatives of the procedure to the patient. The patient was brought to the procedure room and was placed in the prone position on the operating table table. A pillow was placed under the abdomen to reduce lumbar lordosis. Standard anesthesia monitoring was done through out the procedure. The skin preparation was done with ChloraPrep, and draping was done in usual sterile fashion. Sterile technique was observed throughout the procedure. Under fluoroscopic guidance, right the Lumbar 4, 5 and Sacral ala levels were identified in the AP view. For lumbar L4, and L5 levels the targeting area of superior articular process, and close to the most medial and superior aspect of transverse process identified, marked. 1ml of 1% Lidocaine was used with a 25 gauge needle to achieve adequate local anesthesia of the skin and subcutaneous tissue at each level. A 22 gauge 3.5 inch spinal needle was placed and advanced targeting area which was close to the most medial and superior aspect of the transverse process. For Lumbar 5/ sacral ala level, fluoroscope was used in the anteroposterior view, and the needle tip was placed at the superior and most medial part of sacral ala close to the superior articular process. A bony contact was obtained and needle tip position was confirmed at anteroposterior view. No paresthesia was noted. A negative aspiration was confirmed. 1 ml solution per level was injected, the block solution containing 2 ml of 0.5% ropivacaine preservative-free solution mixed with 40 MG of Kenalog. The needles were removed intact. Lumbar area was cleaned and bandages were applied. Disposition : The patient tolerated the procedure very well. The patient was transferred to the recovery room and remained stable until discharged home. The patient was given detailed discharge instructions for infection, bleeding, and increased pain at the injection site, and was advised to seek immediate medical attention should significant side effects develop. The patient will be scheduled with Pain Clinic within 4 weeks for repeat procedure if it's helpful.
[2023-06-19] MEDS ORDERED: IV FLUID CONTINUATION 900 ML IV ONE (09:31)
[2023-06-19 09:46] VITALS: BP 149/90; PULSE 71; RESP 18
--- NOTE | 2023-06-19 11:30 | FL ---
Intraoperative/procedural fluoroscopic services were provided. Total fluoroscopy time is 3.0 seconds with a total of 1 submitted images to PACS. Please see the operative/procedural note for further deta ils. DAP: [id number] mGym2
== END 2023-06-19 09:52 | disposition home or self-care (01) ==
LOC: ORPAIN 08:22
DX: M47.816 Spondylosis without myelopathy or radiculopathy, lumbar region (principal); K21.9 Gastro-esophageal reflux disease without esophagitis; N28.9 Disorder of kidney and ureter, unspecified; I10 Essential (primary) hypertension; E78.5 Hyperlipidemia, unspecified; Z88.8 Allergy status to other drugs, medicaments and biological substances; Z79.899 Other long term (current) drug therapy; Z79.82 Long term (current) use of aspirin
CPT/HCPCS: 64494; 64493; J2250; J3301; J3010; J2795

== ENCOUNTER → 2023-07-22 | Outpatient (CLI) | payer MEDICARE ==
[2023-07-22 13:17] VITALS: BP 126/81; PULSE 77; RESP 15; TEMP 98.2
--- NOTE | 2023-07-22 14:19 | P.PAINPG ---
PQRS Measure Charge Sheet Comment: A 88 yr old male w daughter at side presents today w severe and chronic LBP x 1 yr secondary to DDD, spondylosis and facet arthropathy without myelopathy for evaluation s/p R MBB L3-L5 #1. Pt states she experienced 80 % pain relief x 2-3 wks s/p procedure. Pt states pain level is provoked at 8.5/10 in intensity, constant, localized in the R lower lumbar spine, burning in character w shooting pain towards the R hip and knee. Pain is provoked by walking. Pain is alleviated by PT semi weekly x 6 wks in Jan 2023 which provoked pain, massage therapy semi weekly x 3 wks until Dec 2022 which stopped due to out of pocket costs, THC topicals, repositioning, sitting and rest. Oswestry axial pain score of 21. Interventional procedures include NEELAM L4-L5 x1, R MBB L3-L5 x1 Medications include Denies Physical Examinations : Constitutional : Cooperative , not in acute distress . Neurologic : Cranial nerve II to XII intact. No focal neurological deficits. Psychiatric : alert & oriented x 3. Matching mood & appropriate affect. Judgment & insight intact. Musculoskeletal : Cervical Spine Motor strength in the deltoid and biceps: Normal right side. Normal Left side Motor strength biceps and the wrist extensors: Normal right side . Normal left side Motor strength in the triceps muscle: Normal right side. Normal left side Deep tendon reflexes: Normal at the biceps. Normal at Brachioradialis. Normal at triceps Vertebral body tenderness to deep palpation over Cervical facet loading test: positive bilaterally Spurling test: positive bilaterally Neck distraction test: positive bilaterally Naz sign: positive bilaterally Lumbar spine Motor strength lower extremities ,thigh and legs 5/5 Right side , 5/5 Left side Deep tendon reflexes : Normal Knee Jerk. Normal Ankle Jerk Vertebral body tenderness Lumbar facet Loading Test: positive Right / positive Left over R L4-L5, L5-S1 Range of motion of the lumbar spine Flexion 30 degrees, extension 10 degrees Straight Leg Raise test: Left/ Right positive at degrees Rossi test: positive right / positive left. Severe tenderness over the Sacroiliac joint on the Right / Left sides Gaenslen test: positive bilaterally Seated flexion test: positive bilaterally. Sacral spine : Severe tenderness over the Sacroiliac joint: right side / left side Range of motion: Flexion of the lumbar spine <60 degrees Range of motion: Extension of the lumbar spine <20 degrees Gaenslen's Test positive Kaz's Test positive Rossi test: positive right side / left side Thigh Thrust Test Sacral Thrust Test Imaging: Lumbar MRI non contrast from 03/13/23 reviewed Assessment/ Plan : Lumbar DDD Recommendation of R MBB L4-L5, L5-S1 #2. May need a series of injections, up until RFA, for optimal pain relief. Risks, benefits of procedure discussed and pt verbalized understanding. Protocol for discontinuation/ continuation of medications tiki procedure discussed. Advised pt and daughter at side to go to their PCP for a BP evaluation. Dangers of elevated BP discussed and pt/ daughter at side acknowledged understanding. All questions answered. I have spent greater than 30 minutes on patient care today. Dr Mckeon was available by phone for the evaluation of this patient. The time was used to review the medical records including relevant urine studies and Prescription history (MAPs), review of the available imaging, evaluation and examination of the patient, coordination of care with the medical staff and if applicable referring physicians, as well as creation of the medical record PQRS Narrative: Hx Alcohol Use (MH) No Home Medications: Ambulatory Orders Atorvastatin [Lipitor] 20 mg PO DAILY 02/06/21 Esomeprazole Magnesium [NexIUM] 40 mg PO QAM 02/06/21 Losartan [Cozaar] 25 mg PO QAM 02/06/21 Aspirin [Adult Low Dose Aspirin EC] 81 mg PO BID #60 tablet. 02/13/21 Docusate [Colace] 100 mg PO DAILY PRN 06/12/23 Multivit-Min/FA/Lycopen/Lutein [Centrum Silver Men Tablet] 1 each PO DAILY 06/12/23 Controlled Substance Measures - Controlled Substance Measures Is patient prescribed a controlled substance at discharge?: No
== END ==
LOC: PNWHC3 10:41
PROVIDERS: ATTEND Specialist
DX: M51.37 Other intervertebral disc degeneration, lumbosacral region (principal); Z79.82 Long term (current) use of aspirin; Z91.048 Other nonmedicinal substance allergy status
CPT/HCPCS: 99211

== ENCOUNTER 2023-08-21 08:49 | Day surgery (SDC) | payer MEDICARE ==
[2023-08-19 16:37] VITALS: BMI 31.0
[~2023-08-21 08:49] MED LIST changes: +LIDOCAINE 1% (10MG/ML) FOR IV START INTRADERMA PRN
[2023-08-21 09:35] VITALS: TEMP 97.7
[2023-08-21 09:36] LABS: Glucose,Whole Blood 95 mg/dL (70-110)
[2023-08-21] MEDS ORDERED: fentaNYL (PF) 50 MCG/ML 2 ML AMP ONE (10:30)
[2023-08-21] MEDS ORDERED: MIDAZOLAM 2 MG/2 ML VIAL ONE (10:30)
[2023-08-21] MEDS ORDERED: TRIAMCINOLONE ACETONIDE 40 MG/ML 1 ML VIAL ONE (10:32)
[2023-08-21] MEDS ORDERED: ROPIVACAINE 5MG/ML 20ML VIAL ONE (10:32)
--- NOTE | 2023-08-21 10:42 | P.PCN ---
Date of Procedure: 08/21/23 Surgeon: Dedrick Starks Pathology: none sent Condition: stable Disposition: PACU Description of Procedure: PREOPERATIVE DIAGNOSIS : 1- Lumbar spondylosis with Facet Arthropathy without myelopathy . 2- Lumber degenerative disc disease POSTOPERATIVE DIAGNOSIS: 1- Lumbar spondylosis with Facet Arthropathy without myelopathy . 2- Lumber degenerative disc disease PROCEDURE: Diagnostic Right L4 -5 , and L5-S1 medial branch block under fluoroscopy Physician: Dedrick Starks MD ANESTHESIA: Local with 1% lidocaine;and IV moderate conscious sedation by the anesthesia department EBL: Negligible COMPLICATION: None. PROCEDURE INDICATION: Chronic low back pain secondary to Facet arthropathy unresponsive to conservative treatment. PROCEDURE DESCRIPTION: the patient was seen and identified in the preop holding area , risks and benefits and possible complications of the procedure and alternatives were discussed with the patient, and the patient agreed to proceed with the procedure and signed the consent. IV was started and vital signs monitored during the procedure and fluoroscopy was used to maximize the benefit and accuracy of the needle placement, sedation was given to decrease patient anxiety, patient was taken to the procedure room and placed in prone position vital signs monitored. The patient was brought into the procedure room and placed in prone position. Skin was prepped with Chloraprep and draped in a sterile manner. Lidocaine 1% was used to numb the skin up at the target points that were chosen as follows: at the L5-S1 level which corresponds to the dorsal ramus of L5 the target point was at the superior medial aspect of the sacral ala on the right side of the spine on the AP view of fluoroscopy, and for the L3 and L4 medial branches the target points were at the connection between the transverse process and the superior articular process of L4 and L5 respectively on the right oblique view of fluoroscopy. I used 22-gauge 3-1/2 inch Quincke spinal needles for this procedure and after contacting bone at the target points mentioned above I injected 1 mL of a mixture of Kenalog 40 mg +2 MLS of Ropivacaine 0.5% PF . Patient tolerated procedure well. At the end of the procedure the needles r emoved and a bandage applied after the skin was cleaned the cleaning solution. patient was then taken to the recovery room in stable condition and monitored in the recovery room for 20-30 minutes and discharged home in stable condition after discharge criteria met . A copy of the needle placement picture was saved to the C-arm machine.
[2023-08-21] MEDS ORDERED: IV FLUID CONTINUATION 1,000 ML IV ONE (10:45)
--- NOTE | 2023-08-21 10:51 | FL ---
EXAMINATION TYPE: FL guided pain mgmt statistic DATE OF EXAM: 08/21/2023 HISTORY: Fluoroscopy time Total dose area product (DAP) in uGy*m?, mGy*cm? (or similar): 0.17252 IMPRESSION: 1. Fluoroscopy time.
[2023-08-21 11:50] VITALS: BP 164/73; PULSE 81; RESP 16
== END 2023-08-21 11:31 | disposition home or self-care (01) ==
LOC: ORPAIN 08:49
PROVIDERS: ATTEND Anesthesiology
DX: M47.816 Spondylosis without myelopathy or radiculopathy, lumbar region (principal); M51.36 Other intervertebral disc degeneration, lumbar region; G89.29 Other chronic pain; I10 Essential (primary) hypertension; E78.5 Hyperlipidemia, unspecified; K21.9 Gastro-esophageal reflux disease without esophagitis; Z79.82 Long term (current) use of aspirin; Z79.899 Other long term (current) drug therapy
CPT/HCPCS: 64493; 64494; J2250; J3301; J3010; J2795

== ENCOUNTER → 2023-09-21 | Outpatient (CLI) | payer MEDICARE ==
[2023-09-21 11:07] VITALS: BP 174/105; PULSE 101; RESP 15; TEMP 98.4
--- NOTE | 2023-09-21 12:31 | P.PAINPG ---
PQRS Measure Charge Sheet Comment: A 88 yr old male w daughter at side presents today w severe and chronic LBP x 1 yr secondary to DDD, spondylosis and facet arthropathy without myelopathy for evaluation s/p R MBB L3-L5 #2. Pt states she experienced 80 % pain relief x 2 wks s/p procedure. Pt states pain level is provoked at 8.5/10 in intensity, constant, localized in the R lower lumbar spine, predominantly axial burning in character w occasional shooting pain towards the R hip and knee. Pain is provoked by walking. Pain is alleviated by PT semi weekly x 6 wks in Jan 2023 which provoked pain, massage therapy semi weekly x 3 wks until Dec 2022 which stopped due to out of pocket costs, THC topicals, repositioning, sitting and rest. Oswestry axial pain score of 20. Interventional procedures include NEELAM L4-L5 x1, R MBB L3-L5 x2 Medications include Denies Physical Examinations : Constitutional : Cooperative , not in acute distress . Neurologic : Cranial nerve II to XII intact. No focal neurological deficits. Psychiatric : alert & oriented x 3. Matching mood & appropriate affect. Judgment & insight intact. Musculoskeletal : Cervical Spine Motor strength in the deltoid and biceps: Normal right side. Normal Left side Motor strength biceps and the wrist extensors: Normal right side . Normal left side Motor strength in the triceps muscle: Normal right side. Normal left side Deep tendon reflexes: Normal at the biceps. Normal at Brachioradialis. Normal at triceps Vertebral body tenderness to deep palpation over Cervical facet loading test: positive bilaterally Spurling test: positive bilaterally Neck distraction test: positive bilaterally Naz sign: positive bilaterally Lumbar spine Motor strength lower extremities ,thigh and legs 5/5 Right side , 5/5 Left side Deep tendon reflexes : Normal Knee Jerk. Normal Ankle Jerk Vertebral body tenderness Lumbar facet Loading Test: positive Right / positive Left over R L4-L5, L5-S1 Range of motion of the lumbar spine Flexion 30 degrees, extension 10 degrees Straight Leg Raise test: Left/ Right positive at degrees Rossi test: positive right / positive left. Severe tenderness over the Sacroiliac joint on the Right / Left sides Gaenslen test: positive bilaterally Seated flexion test: positive bilaterally. Sacral spine : Severe tenderness over the Sacroiliac joint: right side / left side Range of motion: Flexion of the lumbar spine <60 degrees Range of motion: Extension of the lumbar spine <20 degrees Gaenslen's Test positive Kaz's Test positive Rossi test: positive right side / left side Thigh Thrust Test Sacral Thrust Test Imaging: Lumbar MRI non contrast from 03/13/23 reviewed Assessment/ Plan : Lumbar DDD Recommendation of R RFA L4-L5, L5-S1. May need a series of injections, up until RFA, for optimal pain relief. Risks, benefits of procedure discussed and pt verbalized understanding. Protocol for discontinuation/ continuation of medications tiki procedure discussed. Advised pt and daughter at side to go to their PCP for a BP evaluation. Dangers of elevated BP discussed and pt/ daughter at side acknowledged understanding. All questions answered. I have spent greater than 30 minutes on patient care today. Dr Mckeon was available by phone for the evaluation of this patient. The time was used to review the medical records including relevant urine studies and Prescription history (MAPs), review of the available imaging, evaluation and examination of the patient, coordination of care with the medical staff and if applicable referring physicians, as well as creation of the medical record PQRS Narrative: Hx Alcohol Use (MH) No Home Medications: Ambulatory Orders Atorvastatin [Lipitor] 20 mg PO DAILY 02/06/21 Esomeprazole Magnesium [NexIUM] 40 mg PO QAM 02/06/21 Losartan [Cozaar] 25 mg PO QAM 02/06/21 Aspirin [Adult Low Dose Aspirin EC] 81 mg PO BID #60 tablet. 02/13/21 Docusate [Colace] 100 mg PO DAILY PRN 06/12/23 Mv-Min/Folic/K1/Lycopen/Lutein [Centrum Silver Men Tablet] 1 each PO DAILY 06/12/23 Controlled Substance Measures - Controlled Substance Measures Is patient prescribed a controlled substance at discharge?: No
== END ==
LOC: PNWHC3 10:19
PROVIDERS: ATTEND Specialist
DX: M51.37 Other intervertebral disc degeneration, lumbosacral region (principal); Z79.82 Long term (current) use of aspirin; Z88.8 Allergy status to other drugs, medicaments and biological substances
CPT/HCPCS: 99211

== ENCOUNTER → 2023-10-09 | Day surgery (SDC) | payer MEDICARE ==
[~2023-10-09] MED LIST changes: +IV FLUID CONTINUATION 800 ML IV ONE; -LIDOCAINE 1% (10MG/ML) FOR IV START INTRADERMA PRN; +MIDAZOLAM 2 MG/2 ML VIAL ONE; +ROPIVACAINE 5MG/ML 20ML VIAL ONE; +fentaNYL (PF) 50 MCG/ML 2 ML AMP ONE; +methylPREDNISolone ACETATE 40 MG/ML 1 ML VIAL ONE
[2023-10-09 13:28] VITALS: TEMP 98.2
--- NOTE | 2023-10-09 13:37 | P.PCN ---
Date of Procedure: 10/09/23 Procedure(s) Performed: PREOPERATIVE DIAGNOSIS: 1-Lumbar Spondylosis with Facet Arthropathy without myelopathy. 2- Lumber degenerative disc disease. POSTOPERATIVE DIAGNOSIS: 1- Lumbar Spondylosis with Facet Arthropathy without myelopathy. 2- Lumber degenerative disc disease. PROCEDURES : Right Radiofrequency thermocoagulation, L3 , L4 , and L5 medial branch, with fluoroscopic guidance (fluoroscopy images available in the radiology department) ( to denervate the facet joint at Right L4-5 ,and L5-S1 levels ). ANESTHESIA: Monitored anesthesia care as per anesthesia department. EBL: Minimal PROCEDURE INDICATION: The patient with low back pain secondary to lumbar facet arthropathy who had more than 50% relief of her pain with previous diagnostic lumbar medial branch block with bupivacaine. PROCEDURE DESCRIPTION / TECHNIQUE: The patient was seen and identified in the preoperative area. Risks, benefits, complications, including but not limited to risk of infection ,bleeding , allergic reactions to the medications and no complete pain releife , and alternatives were discussed with the patient, the patient agreed to proceed with the procedure and signed the consent. IV was started. Vital signs remained stable throughout the procedure. Patient was taken to the OR and time out was completed. The patient was placed in the prone position on the procedure table. The lumber area was prepped and draped in the usual sterile fashion. . Vital signs were closely monitored during the procedure .IV sedation was used during the procedure to decrease patients anxiety. Using AP and then oblique fluoroscopy, the ``eye of the Dimitris dog corresponding to the connection between the superior and transverse articular processes of right L3, L4, and L5 were identified, marked, and localized with 1% lidocaine. Subsequently, a 18 -va radiofrequency cannula with a 10- mm active tip was advanced guided by fluoroscopy to each of the``eyes of the Dimitris dog at right L3, L4, and L5. Each site then underwent sensory testing at 50 Hz and 0 to 1 volt and motor testing at 2.5 Hz and 0 to 3 volt with local stimulation, but no radicular symptoms down the legs. Thereafter each sites underwent radiofrequency thermocoagulation at 80 degrees celsius for 90 seconds after injecting 0.5 ml of PF Ropivacaine 1ml, then after the thermocoagulation done , 1 ml of the block solution containing Depo-Medrol 20 mg and 3 ml of Ropivacaine 0.5% was injected at the right L3 , L4 , and L5 , levels after negative aspiration of CSF and blood and with no paresthesias. Cannulas were retracted while injecting lidocaine 1% until the needle is out. . At the end of the procedure, the skin was cleansed and bandages were applied. COMPLICATIONS: No acute complications. DISPOSITION / PLANS: The patient was placed in a supine position and transferred to the recovery area in a stable condition for observation and was discharged from the recovery room after meeting discharge criteria. Home discharge instructions given to the patient by the staff. The patient was reexamined prior to discharge. The patient will schedule a follow up in the clinic in 2-4 weeks.
--- NOTE | 2023-10-09 13:45 | FL ---
EXAMINATION TYPE: FL guided pain mgmt statistic DATE OF EXAM: 10/09/2023 HISTORY: Fluoroscopy time Total dose area product (DAP) in uGy*m?, mGy*cm? (or similar): 0.47980 IMPRESSION: 1. Fluoroscopy time.
[2023-10-09 14:16] VITALS: BP 145/77; PULSE 82; RESP 16
== END | disposition home or self-care (01) ==
LOC: ORPAIN 12:11
PROVIDERS: ATTEND Specialist
DX: M51.36 Other intervertebral disc degeneration, lumbar region (principal); M47.816 Spondylosis without myelopathy or radiculopathy, lumbar region; I10 Essential (primary) hypertension; E78.5 Hyperlipidemia, unspecified; K21.9 Gastro-esophageal reflux disease without esophagitis; Z88.8 Allergy status to other drugs, medicaments and biological substances; Z87.442 Personal history of urinary calculi; Z79.899 Other long term (current) drug therapy
CPT/HCPCS: 64635; 64636; J2250; J1030; J3010; J2795

== ENCOUNTER → 2023-11-18 | Outpatient (CLI) | payer MEDICARE ==
[2023-11-18 10:49] VITALS: BP 137/70; PULSE 85; RESP 16; TEMP 96.9
--- NOTE | 2023-11-18 14:33 | P.PAINPG ---
PQRS Measure Charge Sheet Comment: A 88 yr old male w daughter at side presents today w severe and chronic LBP x 1 yr secondary to DDD, spondylosis and facet arthropathy without myelopathy for evaluation s/p R RFA L3-L5. Pt states she experienced 50 % pain relief s/p procedure. Pt states pain level is provoked at 7/10 in intensity, constant, localized in the R lower lumbar spine, predominantly axial achy in character w occasional shooting pain towards the R hip and R knee. Pain is provoked by walking. Pain is alleviated by PT semi weekly x 6 wks in Jan 2023 which provoked pain, massage therapy semi weekly x 3 wks until Dec 2022 which stopped due to out of pocket costs, THC topicals, repositioning, sitting and rest. Oswestry axial pain score of 19. Interventional procedures include NEELAM L4-L5 x1, R MBB L3-L5 x2 Medications include Denies Physical Examinations : Constitutional : Cooperative , not in acute distress . Neurologic : Cranial nerve II to XII intact. No focal neurological deficits. Psychiatric : alert & oriented x 3. Matching mood & appropriate affect. Judgment & insight intact. Musculoskeletal : Cervical Spine Motor strength in the deltoid and biceps: Normal right side. Normal Left side Motor strength biceps and the wrist extensors: Normal right side . Normal left side Motor strength in the triceps muscle: Normal right side. Normal left side Deep tendon reflexes: Normal at the biceps. Normal at Brachioradialis. Normal at triceps Vertebral body tenderness to deep palpation over Cervical facet loading test: positive bilaterally Spurling test: positive bilaterally Neck distraction test: positive bilaterally Naz sign: positive bilaterally Lumbar spine Motor strength lower extremities ,thigh and legs 5/5 Right side , 5/5 Left side Deep tendon reflexes : Normal Knee Jerk. Normal Ankle Jerk Vertebral body tenderness Taut bands w twitch response over R L2- S1 Lumbar facet Loading Test: positive Right / positive Left over R L4-L5, L5-S1 Range of motion of the lumbar spine Flexion 30 degrees, extension 10 degrees Straight Leg Raise test: Left/ Right positive at degrees Rossi test: positive right / positive left. Severe tenderness over the Sacroiliac joint on the Right / Left sides Gaenslen test: positive bilaterally Seated flexion test: positive bilaterally. Sacral spine : Severe tenderness over the Sacroiliac joint: right side / left side Range of motion: Flexion of the lumbar spine <60 degrees Range of motion: Extension of the lumbar spine <20 degrees Gaenslen's Test positive Kaz's Test positive Rossi test: positive right side / left side Thigh Thrust Test Sacral Thrust Test Imaging: Lumbar MRI non contrast from 03/13/23 reviewed Assessment/ Plan : Lumbar DDD Recommendation of R TPIs L2-S1. May need a series of injections for optimal pain relief. Risks, benefits of procedure discussed and pt verbalized understanding. Protocol for discontinuation/ continuation of medications tiki procedure discussed. All questions answered. I have spent greater than 30 minutes on patient care today. Dr Mckeon was available by phone for the evaluation of this patient. The time was used to review the medical records including relevant urine studies and Prescription history (MAPs), review of the available imaging, evaluation and examination of the patient, coordination of care with the medical staff and if applicable referring physicians, as well as creation of the medical record - Pain Location Bilateral Lower Back Non-Pharmacological Interventions: Chiropractic Treatment, Heat, Inactivity, Massage, Physical Therapy, Position/Reposition, Sitting, Standing Pharmacological Interventions: Block, Epidural, PRN Medication, Topical Medication PQRS Narrative: Hx Alcohol Use (MH) No Home Medications: Ambulatory Orders Atorvastatin [Lipitor] 20 mg PO QAM 02/06/21 Esomeprazole Magnesium [NexIUM] 40 mg PO QAM 02/06/21 Losartan [Cozaar] 25 mg PO QAM 02/06/21 Aspirin [Adult Low Dose Aspirin EC] 81 mg PO BID #60 tablet. 02/13/21 Docusate [Colace] 100 mg PO DAILY PRN 06/12/23 Mv-Min/Folic/K1/Lycopen/Lutein [Centrum Silver Men Tablet] 1 each PO QAM 06/12/23 methocarbamoL [Robaxin] 500 mg PO TID PRN 30 Days #90 tab 11/18/23 Controlled Substance Measures - Controlled Substance Measures Is patient prescribed a controlled substance at discharge?: No
== END ==
LOC: PNWHC3 10:21
PROVIDERS: ATTEND Specialist
DX: M51.37 Other intervertebral disc degeneration, lumbosacral region (principal); M47.817 Spondylosis without myelopathy or radiculopathy, lumbosacral region; Z79.82 Long term (current) use of aspirin; Z88.8 Allergy status to other drugs, medicaments and biological substances
CPT/HCPCS: 99211

== ENCOUNTER 2023-12-01 12:59 | Day surgery (SDC) | payer MEDICARE ==
[2023-11-25 12:52] VITALS: BMI 25.8
[2023-12-01 13:36] VITALS: RESP 18; TEMP 97.7
[2023-12-01] MEDS ORDERED: methylPREDNISolone ACETATE 40 MG/ML 1 ML VIAL ONE (13:52)
[2023-12-01] MEDS ORDERED: ROPIVACAINE 5MG/ML 20ML VIAL ONE (13:52)
--- NOTE | 2023-12-01 13:59 | P.PCN ---
Date of Procedure: 12/01/23 Procedure(s) Performed: Procedure= trigger point injections lumbar paraspinal muscles bilaterally , 4 on the right side from L2 to S1, and 2 on the left side from L2 to S1 Preoperative diagnosis= 1-myofascial pain syndrome lumbar paraspinal muscles 2-lumbar degenerative disc disease 3-lumbar facet arthropathy Postoperative diagnosis=Same as preop Diagnosis . Complication = none Condition= stable Anesthesia= none. Indication for the procedure= patient complaining of low back pain , examination was positive for multiple trigger point in the lumbar paraspinal muscles bilaterally and patient diagnosed with myofascial pain syndrome and is here to have trigger point injections Description of the procedure= procedure risk and benefits discussed with the patient, including but not limited, risk of infection and bleeding, and ALLERGIC reaction to the medication and not complete pain relief and patient agreed with the preceding patient taken to the operating room, placed in sitting position or standard monitors applied to the patient then after induction of anesthesia back prepped with chlorhexidine 3 times , then under sterile technique each of the trigger point that was marked in the preop holding area 4 on the right side lumbar paraspinal muscles and 2 on the left side lumbar paraspinal muscles each one of them injected with the 2 mL of the mixture of ropivacaine 0.5% 12 ML mixed with 40 mg of Depo-Medrol and 2 mL of the mixture injected at each trigger point after negative aspiration, using 25-gauge needle, injection done after negative aspiration under was no paresthesia during the injection patient tolerated the procedure well without any complications and he will follow up in the pain clinic in a few weeks
[2023-12-01 14:05] VITALS: BP 158/91; PULSE 79
== END 2023-12-01 14:20 | disposition home or self-care (01) ==
LOC: ORPAIN 12:59
PROVIDERS: ATTEND Specialist
DX: M79.18 Myalgia, other site (principal); M47.816 Spondylosis without myelopathy or radiculopathy, lumbar region
CPT/HCPCS: 20553; J1030; J2795

== ENCOUNTER → 2024-01-11 | Outpatient (CLI) | payer MEDICARE ==
[2024-01-11 11:11] VITALS: BP 138/74; PULSE 89; RESP 15; TEMP 98.6
--- NOTE | 2024-01-11 14:21 | P.PAINPG ---
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 Pt states she experienced 60 % pain relief x 6 wks s/p procedure. Pt states pain level is provoked at 6/10 in intensity, constant, localized in the R lower lumbar spine, predominantly axial achy in character w occasional shooting pain towards the R hip and R lateral thigh. Pain is provoked by walking. Pain is alleviated by PT semi weekly x 6 wks in Jan 2023 which provoked pain, massage therapy semi weekly x 3 wks until Dec 2022 which stopped due to out of pocket costs, THC topical, repositioning, sitting and rest. Oswestry axial pain score of 18. Interventional procedures include NEELAM L4-L5 x1, R MBB L3-L5 x2, BL TPIs L2-S1 x1 Medications include Cannabis topical Physical Examinations : Constitutional : Cooperative , not in acute distress . Neurologic : Cranial nerve II to XII intact. No focal neurological deficits. Psychiatric : alert & oriented x 3. Matching mood & appropriate affect. Judgment & insight intact. Musculoskeletal : Cervical Spine Motor strength in the deltoid and biceps: Normal right side. Normal Left side Motor strength biceps and the wrist extensors: Normal right side . Normal left side Motor strength in the triceps muscle: Normal right side. Normal left side Deep tendon reflexes: Normal at the biceps. Normal at Brachioradialis. Normal at triceps Vertebral body tenderness to deep palpation over Cervical facet loading test: positive bilaterally Spurling test: positive bilaterally Neck distraction test: positive bilaterally Naz sign: positive bilaterally Lumbar spine Motor strength lower extremities ,thigh and legs 5/5 Right side , 5/5 Left side Deep tendon reflexes : Normal Knee Jerk. Normal Ankle Jerk Vertebral body tenderness over L3 Castellano test positive R L3-L4 Taut bands w twitch response Lumbar facet Loading Test: positive Right / positive Left over R L4-L5, L5-S1 Range of motion of the lumbar spine Flexion 30 degrees, extension 10 degrees Straight Leg Raise test: Left/ Right positive at degrees Rossi test: positive right / positive left. Severe tenderness over the Sacroiliac joint on the Right / Left sides Gaenslen test: positive bilaterally Seated flexion test: positive bilaterally. Sacral spine : Severe tenderness over the Sacroiliac joint: right side / left side Range of motion: Flexion of the lumbar spine <60 degrees Range of motion: Extension of the lumbar spine <20 degrees Gaenslen's Test positive Kaz's Test positive Rossi test: positive right side / left side Thigh Thrust Test Sacral Thrust Test Imaging: Lumbar MRI non contrast from 03/13/23 reviewed Assessment/ Plan : Lumbar DDD Recommendation of R TFESI L3-L4 #1. May need a series of injections for optimal pain relief. Risks, benefits of procedure discussed and pt verbalized understanding. Protocol for discontinuation/ continuation of medications tiki procedure discussed. All questions answered. I have spent greater than 30 minutes on patient care today. Dr Mckeon was available by phone for the evaluation of this patient. The time was used to review the medical records including relevant urine studies and Prescription history (MAPs), review of the available imaging, evaluation and examination of the patient, coordination of care with the medical staff and if applicable referring physicians, as well as creation of the medical record PQRS Narrative: Hx Alcohol Use (MH) No Home Medications: Ambulatory Orders Atorvastatin [Lipitor] 20 mg PO QAM 02/06/21 Esomeprazole Magnesium [NexIUM] 40 mg PO QAM 02/06/21 Losartan [Cozaar] 25 mg PO QAM 02/06/21 Aspirin [Adult Low Dose Aspirin EC] 81 mg PO BID #60 tablet. 02/13/21 Docusate [Colace] 100 mg PO DAILY PRN 06/12/23 Mv-Min/Folic/K1/Lycopen/Lutein [Centrum Silver Men Tablet] 1 each PO QAM 06/12/23 methocarbamoL [Robaxin] 500 mg PO TID PRN 30 Days #90 tab 11/18/23 Naproxen Sodium [Aleve] 400 mg PO Q8HR PRN 11/25/23 Controlled Substance Measures - Controlled Substance Measures Is patient prescribed a controlled substance at discharge?: No
== END ==
LOC: PNWHC3 10:16
PROVIDERS: ATTEND Specialist
DX: M51.36 Other intervertebral disc degeneration, lumbar region (principal); Z88.8 Allergy status to other drugs, medicaments and biological substances; Z79.82 Long term (current) use of aspirin
CPT/HCPCS: 99211

== ENCOUNTER 2024-01-28 08:01 | Day surgery (SDC) | payer MEDICARE ==
[~2024-01-28 08:01] MED LIST changes: -IV FLUID CONTINUATION 800 ML IV ONE; -MIDAZOLAM 2 MG/2 ML VIAL ONE; -ROPIVACAINE 5MG/ML 20ML VIAL ONE; -fentaNYL (PF) 50 MCG/ML 2 ML AMP ONE; -methylPREDNISolone ACETATE 40 MG/ML 1 ML VIAL ONE
[2024-01-28 09:19] VITALS: TEMP 97.5
[2024-01-28] MEDS ORDERED: IOPAMIDOL M200 10 ML VIAL ONE (10:14)
[2024-01-28] MEDS ORDERED: methylPREDNISolone ACETATE 40 MG/ML 1 ML VIAL ONE (10:14)
--- NOTE | 2024-01-28 10:22 | P.PCN ---
Date of Procedure: 01/28/24 Procedure(s) Performed: PREOPERATIVE DIAGNOSIS: 1-Lumbar radiculopathy . 2-lumbar degenerative disc disease. 3-lumbar spondylosis with lumbar facet arthropathy without myelopathy POSTOPERATIVE DIAGNOSIS: 1-lumbar radiculopathy. 2-lumbar degenerative disc disease. 3-lumbar spondylosis with facet arthropathy without myelopathy PROCEDURE 1. Transforaminal epidural steroid injection under fluoroscopic guidance at right L3-4 level. (Fluoroscopy images stored on file in the radiology Department ) 2. Lumbar epidurogram . ANESTHESIA: Local with 1% lidocaine 3 ml. EBL: Minimal PROCEDURE INDICATION: The patient with low back pain and radiculopathy symptoms unresponsive to conservative treatment. PROCEDURE DESCRIPTION / TECHNIQUE: The patient was seen and identified in the preoperative area. Risks, benefits, complications, and alternatives were discussed with the patient. The patient agreed to proceed with the procedure and signed the consent. IV was started, and vital signs were stable. Patient was taken to the OR and time out was completed. The patient was placed in the prone position on procedure table and a pillow was placed under the abdomen to reduce lumbar lordosis. The lumbosacral area was prepped and draped in the usual sterile fashion. Critical pause was taken. Vital signs were closely monitored during the procedure. Using oblique fluoroscopy, the chin of the ``Dimitris dog at right L3-4 level was identified, and the skin and deeper tissues just below was localized with 1% lidocaine. Subsequently, a 22-gauge 3.5-inch spinal needle was advanced under a tunneled view fluoroscopic guidance just underneath the chin of the `Amanday dog at the right L3-4 Under lateral fluoroscopy, the needle was then advanced to the posterior border of the interforaminal space. After negative aspiration of CSF and blood and with no paresthesias, 1 mL Isovue 200 contrast dye was injected excellent epidurogram and outlining of the nerve root Subsequently, 3 mL of block solution containing 40 mg Depo-Medrol and 2 mL of 0.9% normal saline PF was injected. Needle was removed . At the end of the procedure, skin was cleansed, and bandages were applied. COMPLICATIONS:none DISPOSITION / PLANS: The patient was placed in a supine position and transferred to the recovery area in a stable condition for observation. There was no evidence of lower extremity motor or sensory deficit after the procedure. Patient was discharged from the recovery room after meeting discharge criteria. Home discharge instructions were given to the patient by the staff. The patient was reexamined prior to discharge.
--- NOTE | 2024-01-28 10:31 | FL ---
EXAMINATION TYPE: FL guided pain mgmt statistic DATE OF EXAM: 01/28/2024 HISTORY: Fluoroscopy time Total dose area product (DAP) in uGy*m?, mGy*cm? (or similar): 0.82440 IMPRESSION: 1. Fluoroscopy time.
[2024-01-28] MEDS: LOSARTAN 25 MG TAB PO STA (10:36)
[2024-01-28 11:11] VITALS: PULSE 74
[2024-01-28 12:25] VITALS: BP 174/96; RESP 20
== END 2024-01-28 12:00 | disposition home or self-care (01) ==
LOC: ORPAIN 08:01
PROVIDERS: ATTEND Specialist
DX: M51.16 Intervertebral disc disorders with radiculopathy, lumbar region (principal); M47.26 Other spondylosis with radiculopathy, lumbar region; Z88.8 Allergy status to other drugs, medicaments and biological substances; Z79.811 Long term (current) use of aromatase inhibitors; Z79.82 Long term (current) use of aspirin; Z79.1 Long term (current) use of non-steroidal anti-inflammatories (NSAID)
CPT/HCPCS: 64483; J1030; Q9966

== ENCOUNTER → 2024-02-10 | Outpatient (CLI) | payer MEDICARE ==
[2024-02-10 11:39] VITALS: BP 173/89; PULSE 96; TEMP 97.1
--- NOTE | 2024-02-10 13:49 | P.PAINPG ---
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 Pt states she experienced 60 % pain relief x 2 wks s/p procedure. Pt states pain level is provoked at 6 /10 in intensity, constant, localized in the R lower lumbar spine, predominantly axial achy in character w occasional shooting pain towards the RLE. Pain is provoked by walking. Pain is alleviated by PT semi weekly x 6 wks in Jan 2023 which provoked pain, massage therapy semi weekly x 3 wks until Dec 2022 which stopped due to out of pocket costs, THC topical, repositioning, sitting and rest. Oswestry axial pain score of 18. Interventional procedures include NEELAM L4-L5 x1, R MBB L3-L5 x2, BL TPIs L2-S1 x1, R TFESI L3-L4 x1 (Jan 2024) Medications include Cannabis topical Physical Examinations : Constitutional : Cooperative , not in acute distress . Neurologic : Cranial nerve II to XII intact. No focal neurological deficits. Psychiatric : alert & oriented x 3. Matching mood & appropriate affect. Judgment & insight intact. Musculoskeletal : Cervical Spine Motor strength in the deltoid and biceps: Normal right side. Normal Left side Motor strength biceps and the wrist extensors: Normal right side . Normal left side Motor strength in the triceps muscle: Normal right side. Normal left side Deep tendon reflexes: Normal at the biceps. Normal at Brachioradialis. Normal at triceps Vertebral body tenderness to deep palpation over Cervical facet loading test: positive bilaterally Spurling test: positive bilaterally Neck distraction test: positive bilaterally Naz sign: positive bilaterally Lumbar spine Motor strength lower extremities ,thigh and legs 5/5 Right side , 5/5 Left side Deep tendon reflexes : Normal Knee Jerk. Normal Ankle Jerk Vertebral body tenderness over L3 Castellano test positive R L3-L4 Taut bands w twitch response Lumbar facet Loading Test: positive Right / positive Left over R L4-L5, L5-S1 Range of motion of the lumbar spine Flexion 30 degrees, extension 10 degrees Straight Leg Raise test: Left/ Right positive at degrees Rossi test: positive right / positive left. Severe tenderness over the Sacroiliac joint on the Right / Left sides Gaenslen test: positive bilaterally Seated flexion test: positive bilaterally. Sacral spine : Severe tenderness over the Sacroiliac joint: right side / left side Range of motion: Flexion of the lumbar spine <60 degrees Range of motion: Extension of the lumbar spine <20 degrees Gaenslen's Test positive Kaz's Test positive Rossi test: positive right side / left side Thigh Thrust Test Sacral Thrust Test Imaging: Lumbar MRI non contrast from 03/13/23 reviewed Assessment/ Plan : Lumbar DDD Recommendation of medication management. Robaxin and Lidoderm 5% w 1 RF. Use, side effects, adverse reactions, safe storage discussed. Pt acknowledged understanding. All questions answered. I have spent greater than 30 minutes on patient care today. Dr Mckeon was available by phone for the evaluation of this patient. The time was used to review the medical records including relevant urine studies and Prescription history (MAPs), review of the available imaging, evaluation and examination of the patient, coordination of care with the medical staff and if applicable referring physicians, as well as creation of the medical record - Pain Location Lower Back Non-Pharmacological Interventions: Inactivity, Massage, Physical Therapy, Position/Reposition Pharmacological Interventions: Epidural, PRN Medication, Topical Medication PQRS Narrative: Hx Alcohol Use (MH) No Home Medications: Ambulatory Orders Atorvastatin [Lipitor] 20 mg PO QAM 02/06/21 Esomeprazole Magnesium [NexIUM] 40 mg PO QAM 02/06/21 Losartan [Cozaar] 25 mg PO QAM 02/06/21 Aspirin [Adult Low Dose Aspirin EC] 81 mg PO BID #60 tablet. 02/13/21 Docusate [Colace] 100 mg PO DAILY PRN 06/12/23 Mv-Min/Folic/K1/Lycopen/Lutein [Centrum Silver Men Tablet] 1 each PO QAM 06/12/23 Naproxen Sodium [Aleve] 400 mg PO Q8HR PRN 11/25/23 Lidocaine 5% Patch [Lidoderm] 1 each TP DAILY 30 Days #30 patch 02/10/24 methocarbamoL [Robaxin] 500 mg PO TID PRN 30 Days #90 tab 02/10/24 Controlled Substance Measures - Controlled Substance Measures Is patient prescribed a controlled substance at discharge?: No
== END ==
LOC: PNWHC3 10:58
PROVIDERS: ATTEND Specialist
DX: M51.36 Other intervertebral disc degeneration, lumbar region (principal); Z88.2 Allergy status to sulfonamides
CPT/HCPCS: 99211

== ENCOUNTER → 2024-02-15 | Outpatient (CLI) | payer MEDICARE ==
--- NOTE | 2024-02-15 12:13 | XR ---
EXAMINATION TYPE: XR chest 2V DATE OF EXAM: 02/15/2024 12:03 PM CLINICAL INDICATION:Male, 88 years old with history of G932,I10 INTRACRANIAL HTN, HTN; YCH COMPARISON: Chest radiographs from 10/22/2022 TECHNIQUE: XR chest 2V Frontal and lateral views of the chest. FINDINGS: Lungs/Pleura: There is flattening of the diaphragm with increased lucency of the lungs. No evidence o f pneumothorax, pleural effusion or focal consolidation. Pulmonary vascularity: Unremarkable. Heart/mediastinum: Cardiomediastinal silhouette is unremarkable. Musculoskeletal: No acute osseous pathology. Other findings: None IMPRESSION: 1. No acute cardiopulmonary disease process. 2. COPD changes.
== END | disposition home or self-care (01) ==
LOC: RADXRYALE 11:14
PROVIDERS: ATTEND Physician Assistant
DX: J44.9 Chronic obstructive pulmonary disease, unspecified (principal); G93.2 Benign intracranial hypertension; I10 Essential (primary) hypertension
CPT/HCPCS: 71046

== ENCOUNTER → 2024-05-25 | Outpatient (CLI) | payer MEDICARE ==
[2024-05-25 10:38] VITALS: BP 172/75; PULSE 67; RESP 16; TEMP 97.6
--- NOTE | 2024-05-25 14:12 | P.PAINPG ---
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 Pt states pain level is provoked at 6 /10 in intensity, constant, localized in the R lower lumbar spine, predominantly axial achy in character w occasional shooting pain towards the RLE. Pain is provoked by walking. Pain is alleviated by PT semi weekly x 6 wks in Jan 2023 which provoked pain, massage therapy semi weekly x 3 wks until Dec 2022 which stopped due to out of pocket costs, THC topical, repositioning, sitting and rest. Oswestry axial pain score of 18. Interventional procedures include NEELAM L4-L5 x1, R MBB L3-L5 x2, BL TPIs L2-S1 x1, R TFESI L3-L4 x1 (Jan 2024) Medications include Cannabis topical Physical Examinations : Constitutional : Cooperative , not in acute distress . Neurologic : Cranial nerve II to XII intact. No focal neurological deficits. Psychiatric : alert & oriented x 3. Matching mood & appropriate affect. Judgment & insight intact. Musculoskeletal : Cervical Spine Motor strength in the deltoid and biceps: Normal right side. Normal Left side Motor strength biceps and the wrist extensors: Normal right side . Normal left side Motor strength in the triceps muscle: Normal right side. Normal left side Deep tendon reflexes: Normal at the biceps. Normal at Brachioradialis. Normal at triceps Vertebral body tenderness to deep palpation over Cervical facet loading test: positive bilaterally Spurling test: positive bilaterally Neck distraction test: positive bilaterally Naz sign: positive bilaterally Lumbar spine Motor strength lower extremities ,thigh and legs 5/5 Right side , 5/5 Left side Deep tendon reflexes : Normal Knee Jerk. Normal Ankle Jerk Vertebral body tenderness over L5 Castellano test positive BL L5-S1 Taut bands w twitch response Lumbar facet Loading Test: positive Right / positive Left over R L4-L5, L5-S1 Range of motion of the lumbar spine Flexion 30 degrees, extension 10 degrees Straight Leg Raise test: Left/ Right positive at degrees Rossi test: positive right / positive left. Severe tenderness over the Sacroiliac joint on the Right / Left sides Gaenslen test: positive bilaterally Seated flexion test: positive bilaterally. Sacral spine : Severe tenderness over the Sacroiliac j oint: right side / left side Range of motion: Flexion of the lumbar spine <60 degrees Range of motion: Extension of the lumbar spine <20 degrees Gaenslen's Test positive Kaz's Test positive Rossi test: positive right side / left side Thigh Thrust Test Sacral Thrust Test Imaging: Lumbar MRI non contrast from 03/13/23 reviewed Assessment/ Plan : Lumbar DDD Recommendation of BL TFESI L5-S1 #2 and medication management. Discontinue Robaxin and substitute Flexeril 10mg #30 w 1 RF. Opiate/ narcotic agreement signed 05/25/24. [place] 5/325mg #60 w 1 RF. Use, side effects, adverse reactions, safe storage discussed. Pt acknowledged understanding. All questions answered. I have spent greater than 30 minutes on patient care today. Dr Mckeon was available by phone for the evaluation of this patient. The time was used to review the medical records including relevant urine studies and Prescription history (MAPs), review of the available imaging, evaluation and examination of the patient, coordination of care with the medical staff and if applicable referring physicians, as well as creation of the medical record - Pain Location Lower Back Non-Pharmacological Interventions: Stretching Pharmacological Interventions: PRN Medication PQRS Narrative: Blood Pressure 172/75 Pain Intensity [Lower Back] 10 Scale Used Numeric (1 - 10) Hx Alcohol Use (MH) No Home Medications: Ambulatory Orders Atorvastatin [Lipitor] 20 mg PO QAM 02/06/21 Esomeprazole Magnesium [NexIUM] 40 mg PO QAM 02/06/21 Losartan [Cozaar] 25 mg PO QAM 02/06/21 Aspirin [Adult Low Dose Aspirin EC] 81 mg PO BID #60 tablet. 02/13/21 Docusate [Colace] 100 mg PO DAILY PRN 06/12/23 Mv-Min/Folic/K1/Lycopen/Lutein [Centrum Silver Men Tablet] 1 each PO QAM 06/12/23 Naproxen Sodium [Aleve] 400 mg PO Q8HR PRN 11/25/23 Lidocaine 5% Patch [Lidoderm 5% Patch] 1 each TP DAILY 30 Days #30 patch 05/23/24 Cyclobenzaprine [Flexeril] 10 mg PO HS PRN 30 Days #30 tab 05/25/24 Cyclobenzaprine [Flexeril] 10 mg PO HS PRN 30 Days #30 tab 05/25/24 HYDROcodone/APAP 5-325MG [[place] 5-325] 1 tab PO BID PRN 30 Days #60 tab 05/25/24 HYDROcodone/APAP 5-325MG [[place] 5-325] 1 tab PO BID PRN 30 Days #60 tab 05/25/24 Controlled Substance Measures - Controlled Substance Measures Is patient prescribed a controlled substance at discharge?: Yes When asked, does pt state using other controlled substances?: No If prescribed controlled substance>3 days was MAPS reviewed?: Yes If Rx opioid, was Start Talking consent form obtained?: Yes Was information provided regarding opioid addiction?: Yes
== END ==
LOC: PNWHC3 10:11
PROVIDERS: ATTEND Specialist
DX: M51.37 Other intervertebral disc degeneration, lumbosacral region (principal); M47.817 Spondylosis without myelopathy or radiculopathy, lumbosacral region; Z88.8 Allergy status to other drugs, medicaments and biological substances
CPT/HCPCS: 99211

== ENCOUNTER 2024-06-07 11:53 | Day surgery (SDC) | payer MEDICARE ==
[2024-06-07] MEDS ORDERED: IOPAMIDOL M200 10 ML VIAL ONE (12:45)
[2024-06-07] MEDS ORDERED: DEXAMETHASONE SOD PHOSPHATE 10 MG/ML 1 ML VIAL ONE (12:45)
--- NOTE | 2024-08-02 18:19 | FL ---
EXAMINATION TYPE: FL guided pain mgmt statistic COMPARISON: Pre Operative Images if available both CT/MRI or plain film CLINICAL INDICATION: Male, 89 years old with history of [facility] PA[facility]; TECHNIQUE: FL guided pain mgmt statistic, multiple fluoroscopic images provided for procedure. Total fluoroscopy time: 17 seconds Total submitted images to PACS: 5 DAP: [id number] mGym2 Gycm2 uGym2 cGycm2 FINDINGS: Fluoroscopic images during injection for pain management demonstrate multilevel degeneration changes throughout the spine. No evidence for fracture. No acute process identified. IMPRESSION: 1. No evidence for intraoperative complication. 2. Please see the operative/procedural note for further details. [facility], , 08/02/2024 6:17 PM
== END 2024-06-07 13:21 | disposition home or self-care (01) ==
LOC: ORPAIN 11:53
PROVIDERS: ATTEND Anesthesiology
DX: M54.16 Radiculopathy, lumbar region (principal); I10 Essential (primary) hypertension; K21.9 Gastro-esophageal reflux disease without esophagitis; Z88.8 Allergy status to other drugs, medicaments and biological substances; Z87.891 Personal history of nicotine dependence; Z79.899 Other long term (current) drug therapy; Z79.82 Long term (current) use of aspirin

== ENCOUNTER → 2024-08-03 | Outpatient (CLI) | payer MEDICARE ==
[2024-08-03 12:30] VITALS: BP 118/77; PULSE 83; RESP 19
--- NOTE | 2024-08-03 14:39 | P.PAINPG ---
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 Pt states he experienced % pain relief x 8 wks s/p procedure. Pt states pain level is provoked at 6 /10 in intensity, constant, localized in the R lower lumbar spine, predominantly axial achy in character w occasional shooting pain towards the RLE. Pain is provoked by walking. Pain is alleviated by PT semi weekly x 6 wks in Jan 2023 which provoked pain, massage therapy semi weekly x 3 wks until Dec 2022 which stopped due to out of pocket costs, THC topical, repositioning, sitting and rest. Interventional procedures include NEELAM L4-L5 x1, R MBB L3-L5 x2, BL TPIs L2-S1 x1, R TFESI L3-L4 x2 (Jan 2024, Jun 2024) Medications include Cannabis topical (disc per pt), [place] 5/325mg #60 Physical Examinations : Constitutional : Cooperative , not in acute distress . Neurologic : Cranial nerve II to XII intact. No focal neurological deficits. Psychiatric : alert & oriented x 3. Matching mood & appropriate affect. Judgment & insight intact. Musculoskeletal : Cervical Spine Motor strength in the deltoid and biceps: Normal right side. Normal Left side Motor strength biceps and the wrist extensors: Normal right side . Normal left side Motor strength in the triceps muscle: Normal right side. Normal left side Deep tendon reflexes: Normal at the biceps. Normal at Brachioradialis. Normal at triceps Vertebral body tenderness to deep palpation over Cervical facet loading test: positive bilaterally Spurling test: positive bilaterally Neck distraction test: positive bilaterally Naz sign: positive bilaterally Lumbar spine Motor strength lower extremities ,thigh and legs 5/5 Right side , 5/5 Left side Deep tendon reflexes : Normal Knee Jerk. Normal Ankle Jerk Vertebral body tenderness over L5 Castellano test positive BL L5-S1 Taut bands w twitch response Lumbar facet Loading Test: positive Right / positive Left over R L4-L5, L5-S1 Range of motion of the lumbar spine Flexion 30 degrees, extension 10 degrees Straight Leg Raise test: Left/ Right positive at degrees Rossi test: positive right / positive left. Severe tenderness over the Sacroiliac joint on the Right / Left sides Gaenslen test: positive bilaterally Seated flexion test: positive bilaterally. Sacral spine : Severe tenderness over the Sacroiliac joint: right side / left side Range of motion: Flexion of the lumbar spine <60 degrees Range of motion: Extension of the lumbar spine <20 degrees Gaenslen's Test positive Kaz's Test positive Rossi test: positive right side / left side Thigh Thrust Test Sacral Thrust Test Imaging: Lumbar MRI non contrast from 03/13/23 reviewed Assessment/ Plan : Lumbar radiculopathy Recommendation of medication management. [place] 5/325mg #60 , Flexeril 10mg #30 w 1 RF. Opiate/ narcotic agreement signed 05/25/24. UDS collected 08/03/24. Use, side effects, adverse reactions, safe storage discussed. Pt acknowledged under standing. All questions answered. I have spent greater than 30 minutes on patient care today. Dr Mckeon was available by phone for the evaluation of this patient. The time was used to review the medical records including relevant urine studies and Prescription history (MAPs), review of the available imaging, evaluation and examination of the patient, coordination of care with the medical staff and if applicable referring physicians, as well as creation of the medical record PQRS Narrative: Hx Alcohol Use (MH) No Home Medications: Ambulatory Orders Atorvastatin [Lipitor] 20 mg PO QAM 02/06/21 Esomeprazole Magnesium [NexIUM] 40 mg PO QAM 02/06/21 Losartan [Cozaar] 25 mg PO QAM 02/06/21 Aspirin [Adult Low Dose Aspirin EC] 81 mg PO BID #60 tablet. 02/13/21 Docusate [Colace] 100 mg PO DAILY PRN 06/12/23 Mv-Min/Folic/K1/Lycopen/Lutein [Centrum Silver Men Tablet] 1 each PO QAM Naproxen Sodium [Aleve] 400 mg PO Q8HR PRN 11/25/23 Lidocaine 5% Patch [Lidoderm 5% Patch] 1 each TP DAILY 30 Days #30 patch 05/23/24 Cyclobenzaprine [Flexeril] 10 mg PO HS PRN 30 Days #30 tab 08/03/24 HYDROcodone/APAP 5-325MG [[place] 5-325] 1 tab PO BID PRN 30 Days #60 tab 08/03/24 HYDROcodone/APAP 5-325MG [[place] 5-325] 1 tab PO BID PRN 30 Days #60 tab 08/03/24 Controlled Substance Measures - Controlled Substance Measures Is patient prescribed a controlled substance at discharge?: Yes When asked, does pt state using other controlled substances?: No If prescribed controlled substance>3 days was MAPS reviewed?: Yes
== END ==
LOC: PNWHC3 11:11
PROVIDERS: ATTEND Specialist
DX: M54.16 Radiculopathy, lumbar region
CPT/HCPCS: 80307; 99212

== ENCOUNTER → 2024-09-26 | Outpatient (CLI) | payer MEDICARE ==
[2024-09-26 11:24] VITALS: BP 132/67; PULSE 60; RESP 16
--- NOTE | 2024-09-26 16:50 | P.PAINPG ---
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 Pt states he experienced >50 % pain relief x 8 wks s/p procedure. Pt states pain level is provoked at 7 /10 in intensity, constant, localized in the R lower lumbar spine, predominantly axial achy in character w occasional shooting pain towards the RLE. Pain is provoked by walking. Pain is alleviated by PT semi weekly x 6 wks in Jan 2023 which provoked pain, massage therapy semi weekly x 3 wks until Dec 2022 which stopped due to out of pocket costs, repositioning, sitting and rest. Interventional procedures include NEELAM L4-L5 x1, R MBB L3-L5 x2, BL TPIs L2-S1 x1, R TFESI L3-L4 x2 (Jan 2024, Jun 2024) Medications include Cannabis topical (disc per pt), [place] 5/325mg #60 Physical Examinations : Constitutional : Cooperative , not in acute distress . Neurologic : Cranial nerve II to XII intact. No focal neurological deficits. Psychiatric : alert & oriented x 3. Matching mood & appropriate affect. Judgment & insight intact. Musculoskeletal : Cervical Spine Motor strength in the deltoid and biceps: Normal right side. Normal Left side Motor strength biceps and the wrist extensors: Normal right side . Normal left side Motor strength in the triceps muscle: Normal right side. Normal left side Deep tendon reflexes: Normal at the biceps. Normal at Brachioradialis. Normal at triceps Vertebral body tenderness to deep palpation over Cervical facet loading test: positive bilaterally Spurling test: positive bilaterally Neck distraction test: positive bilaterally Naz sign: positive bilaterally Lumbar spine Motor strength lower extremities ,thigh and legs 5/5 Right side , 5/5 Left side Deep tendon reflexes : Normal Knee Jerk. Normal Ankle Jerk Vertebral body tenderness over L5 Castellano test positive BL L5-S1 Taut bands w twitch response Lumbar facet Loading Test: positive Right / positive Left over R L4-L5, L5-S1 Range of motion of the lumbar spine Flexion 30 degrees, extension 10 degrees Straight Leg Raise test: Left/ Right positive at degrees Rossi test: positive right / positive left. Severe tenderness over the Sacroiliac joint on the Right / Left sides Gaenslen test: positive bilaterally Seated flexion test: positive bilaterally. Sacral spine : Severe tenderness over the Sacroiliac joint: right side / left side Range of motion: Flexion of the lumbar spine <60 degrees Range of motion: Extension of the lumbar spine <20 degrees Gaenslen's Test positive Kaz's Test positive Rossi test: positive right side / left side Thigh Thrust Test Sacral Thrust Test Imaging: Lumbar MRI non contrast from 03/13/23 reviewed Assessment/ Plan : Lumbar radiculopathy Recommendation of medication management. [place] 5/325mg #60 , Flexeril 10mg #30 . Opiate/ narcotic agreement signed 05/25/24. UDS from 08/03/24 reviewed and consistent. Use, side effects, adverse reactions, safe storage discussed. Will follow up w Dr Turner for simplification of appointments. All questions answered. I have spent greater than 30 minutes on patient care today. Dr Mckeon was available by phone for the evaluation of this patient. The time was used to review the medical records including relevant urine studies and Prescription history (MAPs), review of the available imaging, evaluation and examination of the patient, coordination of care with the medical staff and if applicable referring physicians, as well as creation of the medical record - Pain Location Lower Back Non-Pharmacological Interventions: Chiropractic Treatment, Heat, Ice, Massage, Physical Therapy Pharmacological Interventions: Epidural, Scheduled Medication PQRS Narrative: Hx Alcohol Use (MH) No Home Medications: Ambulatory Orders Atorvastatin [Lipitor] 20 mg PO QAM 02/06/21 Esomeprazole Magnesium [NexIUM] 40 mg PO QAM 02/06/21 Losartan [Cozaar] 25 mg PO QAM 02/06/21 Aspirin [Adult Low Dose Aspirin EC] 81 mg PO BID #60 tablet. 02/13/21 Docusate [Colace] 100 mg PO DAILY PRN 06/12/23 Mv-Min/Folic/K1/Lycopen/Lutein [Centrum Silver Men Tablet] 1 each PO QAM 06/12/23 Naproxen Sodium [Aleve] 400 mg PO Q8HR PRN 11/25/23 Lidocaine 5% Patch [Lidoderm 5% Patch] 1 each TP DAILY 30 Days #30 patch 05/23/24 HYDROcodone/APAP 5-325MG [[place] 5-325] 1 tab PO BID PRN 30 Days #60 tab 08/03/24 Cyclobenzaprine [Flexeril] 10 mg PO HS PRN 30 Days #30 tab 09/26/24 HYDROcodone/APAP 5-325MG [[place] 5-325] 1 tab PO BID PRN 30 Days #60 tab 09/26/24 Controlled Substance Measures - Controlled Substance Measures Is patient prescribed a controlled substance at discharge?: Yes When asked, does pt state using other controlled substances?: No If prescribed controlled substance>3 days was MAPS reviewed?: Yes
== END ==
LOC: PNWHC3 10:49
PROVIDERS: ATTEND Specialist
DX: M54.16 Radiculopathy, lumbar region (principal); Z88.8 Allergy status to other drugs, medicaments and biological substances
CPT/HCPCS: 99211